=== PATIENT | male | born 1965 | race African-American/Black ===

== ENCOUNTER 2019-10-26 07:46 | Emergency (ER) | payer MEDICAID, SELFPAY ==
[2019-10-26 07:46] VITALS: BP 122/85; PULSE 93; RESP 16; TEMP 36.8; O2SAT 100; BMI 26.9
[2019-10-26 07:50] VITALS: BP 122/85; PULSE 93; RESP 16; TEMP 36.8; O2SAT 100
--- NOTE | 2019-10-26 08:09 | ED.VISSUMM ---
- ER Visit Summary Date of Service: 10/26/19 Chief Complaint: Left foot pain History of Present Illness: The patient is a 53 M presenting with left foot pain. Patient noted a blister between his fourth and fifth toes a few days ago. He states this has been progressively worsening. He made an appointment with podiatry but states they had to reschedule his appointment for later this month. He denies fever or other complaints. Physical Examination: Vitals are stable. Patient is afebrile. Alert no acute distress. HEENT exam is unremarkable. Neck is supple. Lungs are clear and equal bilaterally. Heart is regular rate and rhythm. Extremities abscess between fourth and fifth toes with surrounding erythema dorsum foot. Skin is warm and dry. No focal neurologic deficit. Remainder of exam is unremarkable. Emergency Department Course and Treatment: Left foot x-ray shows normal x-ray examination of the foot. CBC, chemistries unremarkable. Sed rate is 8. I&D was performed. Anesthetized with lidocaine. Incised with 11 blade. Moderate amount of pus was drained. Irrigated with saline. Patient was given Bactrim and Keflex. Advised to follow-up with primary care physician or podiatry. Advised to return to ED if worsening complaints. Disposition: Discharge home Impression: Left foot pain, abscess, I&D This note was generated with [employer] dictation software. It may contain incorrect words, spelling, and punctuation that were not noted in review of the chart prior to signing ED Disposition - Plan for ED Patient: Instructions: ED Abscess Incision And Drainage Prescriptions: Smz/Tmp Ds [Bactrim Ds] 1 tab PO BID #14 tab Prescription Printed Cephalexin [Keflex] 500 mg PO Q6 #40 cap Prescription Printed Hydrocodone Bitart/Apap 5-325 [[place] 5MG-325MG] 1 tab PO Q6H PRN PRN 2 Days #6 tab PRN Reason: Pain Prescription Printed Referrals: Care Physician,No Primary [Primary Care Provider] -
[2019-10-26 08:33] LABS: Erythrocyte Sedimentation Rate 8 mm/hr (0-20)
--- NOTE | 2019-10-26 08:33 | RAD_ITS ---
STUDY: X-RAY - LEFT FOOT CLINICAL: Male, 53 years old. PAINFUL BLISTER BETWEEN 4TH AND 5TH TOES FOR THE PAST WEEK. TECHNIQUE: 3 view(s) of the foot. COMPARISON: None. FINDINGS: Normal talus, calcaneus, and tarsal bones. Small plantar calcaneal enthesophyte. Normal visualized subtalar, talonavicular, calcaneocuboid, tarsal and tarsometatarsal articulations. Normal metatarsi. Normal metatarsophalangeal joint of the great toe. Normal tibial and fibular sesamoid bones. Normal interphalangeal joint of the great toe. Normal phalanges of the great toe. Normal second through fifth metatarsophalangeal joints. Normal interphalangeal joints and phalanges of the lesser toes. The soft tissue structures are unremarkable. RAD/Foot min 3 Views IMPRESSION: Normal x-ray examination of the foot. Electronically Signed: Leroy Patel MD at 8:45 EDT Tel , Service support ,
[2019-10-26 08:34] LABS: Absolute Lymphocyte Count 2.08 X10^3/uL (0.83-4.51); Absolute Neutrophil Count 7.1 X10^3/uL (2.0-7.7); Basophil# 0.07 X10^3/uL; Basophil% 0.7 % (0-1); Eosinophil# 0.47 X10^3/uL; Eosinophils% 4.5 % (0-5); Hematocrit 43.6 % (40-54); Hemoglobin 14.5 g/dL (13.0-16.5); Lymphocyte # 2.08 X10^3/ul (4.0); Lymphocyte % 19.9 % (19-41); Mean Corp Hgb Conc 33.3 g/dL (32-36); Mean Corpuscular Hgb 30.3 pg (27.0-32.0); Mean Platelet Vol. 10.4 fl (6.2-12.0); Monocyte# 0.74 X10^3/uL; Monocyte% 7.1 % (0-10); NRBC Flagged by Analyzer 0 % (0-5); Neutrophil # 7.07 X10^3/uL (2.7-7.7); Neutrophil % 67.5 % (47-70); POSITIVE MORPHOLOGY YES; Platelet Count 369 K/mm3 (150-450); RBC Distribution Width CV 13.9 % (11.6-14.6); RBC Distribution Width SD 46.7 fl (35.1-43.9); Red Blood Count 4.79 M/mm3 (4.6-6.2); White Blood Count 10.5 K/mm3 (4.4-11.0)
[2019-10-26 08:36] LABS: Differential Indicated SCAN CRITERIA MET
[2019-10-26 08:41] LABS: Anion Gap 4 (5-15); BUN 9 mg/dL (7-18); Calcium,Total 9.2 mg/dL (8.5-10.1); Chloride 102 mmol/L (98-107); Creatinine, Serum 1.28 mg/dL (0.70-1.30); EST Glomerular Filtration Rate 62 mL/min (>60); Est Glom Filt Rate - Afr Amer 75 mL/min (>60); Estimated Creatinine Clearance 60.96 ml/min; Glucose 87 mg/dL (74-106); Potassium 3.4 mmol/L (3.5-5.1); Sodium Level 137 mmol/L (136-145)
--- NOTE | 2019-10-26 09:02 | DCINST.ED_ITS ---
ED Disposition - Plan for ED Patient: Instructions: ED Abscess Incision And Drainage Prescriptions: Smz/Tmp Ds [Bactrim Ds] 1 tablet PO BID #14 tablet Cephalexin [Keflex] 500 mg PO Q6 #40 capsule Hydrocodone Bitart/Apap 5-325 [[place] 5MG-325MG] 1 tablet PO Q6H PRN PRN 2 Days #6 tablet PRN Reason: Pain Referrals: Care Physician,No Primary [Primary Care Provider] -
[2019-10-26] MEDS: HYDROcodone Bitartrate/Apap 5/325 Tablet PO (09:11)
[2019-10-26] MEDS: Smz/Tmp Ds Tablet 1 TABLET PO (09:11)
[2019-10-26] MEDS: Cephalexin 250 MG Capsule 500 MG PO (09:11)
[2019-10-26 09:26] VITALS: PULSE 87; RESP 17; O2SAT 99
== END 2019-10-26 09:27 | disposition home or self-care (01) ==
PROVIDERS: Emergency Provider Emergency Medicine
DX: L02.612 Cutaneous abscess of left foot (principal); Z72.0 Tobacco use
CPT/HCPCS: 10060; 73630; 80048; 85025; 85652; 99285; A4216

== ENCOUNTER 2020-05-14 18:40 | Emergency (ER) | payer MEDICAID, SELFPAY ==
[2020-05-14 18:41] VITALS: BP 121/83; PULSE 109; RESP 16; TEMP 36.8; O2SAT 98; BMI 27.5
[2020-05-14] MEDS: oxyCODONE 5 MG Tablet PO (19:14)
--- NOTE | 2020-05-14 19:20 | RAD_ITS ---
HISTORY: pain and swelling in left foot ADDITIONAL HISTORY: None provided. EXAMINATION/TECHNIQUE: XR Foot Min 3 Views Left Number of images including paperwork: 3 COMPARISON: None FINDINGS: BONES: No acute fracture. Calcaneal enthesophytes. JOINTS: No subluxation. Erosive changes noted involving the IP joint of the great toe and at least see DIP joint of the second toe, the third and fourth toes limited in evaluation due to flexion and overlapping. SOFT TISSUES: No distinct foreign body. RAD/Foot min 3 Views IMPRESSION: No acute fracture. Erosive changes of the great toe IP joint and second toe DIP joint suggesting inflammatory arthropathy. Correlate with clinical findings. at 2008 Reported and signed by: Jenise Ashby MD Electronically Signed: Jenise Ashby MD at 20:08 EDT Tel , Service support ,
--- NOTE | 2020-05-14 19:33 | ED.DCSUM_ITS ---
History of Present Illness Chief Complaint: Lower Extremity Injury Informant: Patient Onset: Days Context: Gradual Onset Current Severity: Moderate Maximum Severity: Severe Narrative: Patient presents with left foot pain for the past 3 days or so. He points to the metatarsal joints across all toes and describing his area of pain. He denies any recent injury. He states it feels similar to the last time he was in the emergency room. On review of that note from October 2019 patient had a small abscess that required I&D. Past Medical History - Allergies and Home Meds Allergies/Adverse Reactions: Allergies naproxen [From Naprosyn] Adverse Reaction (Verified 05/14/20 18:41) Nausea Primary Care Physician: Care Physician,No Primary [Primary Care Provider] - Past Medical History: None Smoking Status: Current every day smoker Review of Systems General: Denies: Chills, Fever Eyes: Denies: Visual changes - bilaterally ENT: Denies: Bilateral ear pain Cardiovascular: Denies: Chest pain Respiratory: Denies: Dyspnea, Cough Gastrointestinal: Denies: Abdominal pain, Vomiting, Diarrhea Genitourinary: Denies: Dysuria Musculoskeletal: Reports: Extremity Pain Skin: Denies: Rash Neurological: Denies: Headache Hematologic: Denies: Easy bruising, Easy bleeding Allergy: Denies: Uticaria Physical Exam Vital Signs/Narrative: Vital Signs Temp Pulse Resp BP Pulse Ox 05/14/20 18:41 98.2 F 109 H 16 121/83 H 98 Inital Vital Signs reviewed: Yes General: Well nourished, Well developed Head: Normocephalic ENT: Moist mucous membranes Neck: Supple Cardiovascular: Regular rate, Regular rhythm Respiratory: No distress, CTA bilaterally Abdomen: Soft, Nontender Extremities: - - Diffuse tenderness at the MTP joints 1 through 5 on the left foot. No significant edema. No erythema or excessive warmth. No open wounds or abscesses appreciated. Skin: Normal color Neurological: Alert, Oriented x3 Psychological: Normal affect Diagnostic/Tx/Re-eval - Medical Decision Making 3 view left foot x-rays are obtained and reveal no acute findings per my interpretation. Patient was given a dose of oxycodone here for pain. He will be treated with a short burst of steroids along with analgesics for pain control. He is referred to podiatry for follow-up. ED Disposition - Plan for ED Patient: Disposition: Home or Assisted Living Diagnosis: Left foot pain Instructions: ED Foot Sprain Prescriptions: Prednisone [Deltasone] 40 mg PO DAILY #10 tablet Transmission Status: Pending to [id number] Hydrocodone Bitart/Apap 5-325 [[place] 5MG-325MG] 1 tablet PO Q4H PRN PRN 2 Days #10 tablet PRN Reason: Pain Transmission Status: Sent to [id number] Referrals: Callie Ngo DPM [STAFF PHYSICIAN] - 3-5 Days if not improving
[2020-05-14 19:47] VITALS: RESP 16
== END 2020-05-14 19:47 | disposition home or self-care (01) ==
PROVIDERS: Emergency Provider Emergency Medicine
DX: M79.672 Pain in left foot (principal); F17.200 Nicotine dependence, unspecified, uncomplicated
CPT/HCPCS: 73630; 99283

== ENCOUNTER 2020-05-31 15:30 | Emergency (ER) | payer MEDICAID, SELFPAY ==
[2020-05-31 15:31] VITALS: BP 114/92; PULSE 86; RESP 16; TEMP 36.1; O2SAT 100; BMI 26.7
--- NOTE | 2020-05-31 15:55 | ED.VIS.GEN ---
History of Present Illness Chief Complaint: Lower Extremity Injury Informant: Patient Onset: Month(s) Context: Sudden Onset Timing: Continuous Quality: Pain and swelling Location: Dorsal distal left foot Current Severity: Mild Maximum Severity: Moderate Worsened by: Nothing specific Relieved by: Nothing Associated Symptoms: Increased pain since last visit Narrative: Patient is a 54-year-old male who denies history of peripheral arterial disease and denies symptoms of claudication who presents because of increased pain and swelling left foot. He reports swelling over the proximal phalanx of the second and third left toe. He has thickened toenails. There is no history of trauma. He denies history of arthritis. He states he did have x-ray over a month ago which was negative. At that time there was no soft tissue swelling. Prior similar symptoms: Yes Recent Illness/Hospitalization: Yes - Than 1 month ago Past Medical History - Allergies and Home Meds Allergies/Adverse Reactions: Allergies naproxen [From Naprosyn] Adverse Reaction (Verified 05/31/20 15:31) Nausea Primary Care Physician: Care Physician,No Primary [Primary Care Provider] - Prior records reviewed: Yes Lives: Spouse/ Significant Other Smoking Status: Current some day smoker Alcohol: Rare Drugs: None Review of Systems General: Denies: Chills, Fever, Sweats, Weight loss Gastrointestinal: Denies: Nausea, Vomiting Musculoskeletal: Reports: Swelling, Extremity Pain. Denies: Myalgias, Arthralgias Skin: Denies: Rash, Abscess, Abrasions, Wounds Neurological: Denies: Weakness, Parasthesia, Numbness Hematologic: Denies: Easy bruising, Easy bleeding Physical Exam Vital Signs/Narrative: Vital Signs Temp Pulse Resp BP Pulse Ox 05/31/20 15:31 97 F L 86 16 114/92 H 100 Inital Vital Signs reviewed: Yes General: Well nourished, Well developed, No Acute Distress Head: Normocephalic, Atraumatic Eyes: Perrl, EOMI Neck: Supple Cardiovascular: Regular rate, Regular rhythm Respiratory: No distress Rectal: Deferred Back: Nontender, Normal Inspection. Negative for: CVA tenderness Extremities: Tenderness, - - Swelling and pain to palpation over the proximal phalanx of the second and third left toe. DP and PT pulse are palpable.. Negative for: Edema Skin: Normal color, No rash, No Trauma. Negative for: Cyanosis, Diaphoresis, Jaundice Neurological: Alert, Oriented x3, Cranial nerves II-XII grossly intact, Normal Strength, Normal Sensation Psychological: Normal affect, Normal Mood Diagnostic/Tx/Re-eval Chest X-Ray - ED: Read by ED Physician, - - View x-ray of the foot reveals no evidence of fracture, subluxation or dislocation. There is no significant arthritic changes noted either. There is slight soft tissue swelling. 05/31/20 15:47 Foot min 3 Views [RAD] Stat - Medical Decision Making X-ray was obtained to determine if he did injure it even though reports nothing since he has swelling which was not noted on prior visit. ED Disposition - Plan for ED Patient: Disposition: Home or Assisted Living Diagnosis: Left foot pain Instructions: ED Pain, Acute, Uncertain Cause Prescriptions: Ibuprofen 800 mg PO Q8 #20 tablet Transmission Status: Pending to [facility]/pharmacy #[id number] Referrals: Care Physician,No Primary [Primary Care Provider] - Additional Instructions: Schedule appointment with At [facility]. The cause of your pain is unknown.
--- NOTE | 2020-05-31 15:57 | RAD_ITS ---
STUDY: X-RAY - LEFT FOOT CLINICAL: Male, 54 years old. Pain. TECHNIQUE: 3 view(s) of the foot. COMPARISON: May 14, 2020. FINDINGS: There is plantar spur of the calcaneus. Normal visualized subtalar, talonavicular, calcaneocuboid, tarsal and tarsometatarsal articulations. Normal metatarsi. Normal metatarsophalangeal joint of the great toe. Normal tibial and fibular sesamoid bones. Mild spurring at the interphalangeal joint of the great toe. Normal second through fifth metatarsophalangeal joints. There are stable erosive changes of the distal phalanges of the first and second toe and second middle phalanx . The soft tissue structures are unremarkable. RAD/Foot min 3 Views IMPRESSION: Stable erosive change of the first and second toes with inflammatory arthropathy versus osteomyelitis. Electronically Signed: Eder Long MD at 16:40 EDT , Service support ,
--- NOTE | 2020-05-31 16:39 | ED.RN ---
pt upset that MD ordered motrin- refused. states he has been taking motrin at home. did not want paperwork. aware of needing have followup appt at [place]. MD aware of pt being upset.
== END 2020-05-31 16:40 | disposition home or self-care (01) ==
PROVIDERS: Emergency Provider Emergency Medicine
DX: M79.672 Pain in left foot (principal); F17.200 Nicotine dependence, unspecified, uncomplicated
CPT/HCPCS: 73630; 99282

== ENCOUNTER 2020-12-04 10:48 | Emergency (ER) | payer MEDICAID, SELFPAY ==
[2020-12-04 10:50] VITALS: BP 127/91; PULSE 82; RESP 16; TEMP 36.8; O2SAT 100; BMI 24.3
--- NOTE | 2020-12-04 11:01 | ED.VIS.GI ---
HPI HPI - GI History of Present Illness Chief Complaint: Abd Pain Informant: patient Abdominal Pain/Flank Pain Onset: Weeks Narrative Narrative: Presents 1 week epigastric pain. Denies nausea or vomiting. Normal bowel movement yesterday. Nonbloody stools. No worsening or alleviating factors. Able to eat. States his symptoms 6 months ago self-limiting. Does have a PCP, states has not discussed with any body these new symptoms. No history endoscopies in the past. Denies any dami surgeries. No urinary symptoms. States pain is sharp in nature. Reports occasional alcohol, denies significant use. Prior similar symptoms: Yes PFSH PFSH Medical History no medical history Home Medications omeprazole 40 mg PO DAILY #30 cap 12/04/20 [Rx Last Taken Unknown] sucralfate [Carafate] 1 g PO BID #60 tab 12/04/20 [Rx Last Taken Unknown] Allergy/AdvReac Type Severity Reaction Status Date / Time naproxen [From Naprosyn] AdvReac Nausea Verified 12/04/20 10:49 Surgical History no surgical history Social History Smoking Status: Current some day smoker tobacco type: e-cigarettes ROS ROS ED Constitutional Constitutional ED: Denies chills, fever(s) or sweats Eyes Eyes: Denies change in vision ENT ENT ED: Denies dysphagia or sore throat Cardiovascular Cardiovascular: Denies chest pain, leg edema, palpitations or racing heartbeat Respiratory/Chest Respiratory/Chest: Denies cough, dyspnea or dyspnea on exertion Gastrointestinal Gastrointestinal: Reports abdominal pain; Denies diarrhea, nausea or vomiting Genitourinary Genitourinary ED: Denies dysuria, hematuria or urinary frequency Musculoskeletal Musculoskeletal: Denies back pain, extremity pain or neck pain Integumentary Denies rash or wounds Neurologic Neurologic: Denies headache(s), paresthesias or weakness EXAM Physical Exam Const Vital Signs: 12/04/20 10:50 Temperature 98.2 F Temperature Source Oral Pulse Rate 82 Respiratory Rate 16 Blood Pressure 127/91 H Blood Pressure Mean 103 Pulse Ox 100 Oxygen Delivery Method Room Air Positive well nourished and well developed General Appearance ED: well developed and NAD HEENT Reports moist mucous membranes normocephalic and atraumatic Eyes PERRL, EOMs intact bilaterally and conjunctivae normal General Eye ED: Yes normal appearance of both eyes Neck no lymphadenopathy and supple General: Negative for tenderness Chest Wall Chest: Negative for tenderness Resp normal respiratory effort and normal air movement Effort and Inspection: symmetric chest movement; Negative for respiratory distress Cardio regular rate, regular rhythm and no murmurs Peripheral Pulses: pulses 2+ throughout GI normal to inspection, nondistended, normoactive bowel sounds GI Narrative: Epigastric tenderness no guarding or rebound. Negative Franklin's or McBurney's tenderness. Palpation: Negative for guarding or rebound tenderness present Back/Spine no CVA tenderness and no thoracic nor lumbar tenderness Extremity normal to inspection General Extremety ED: Negative for edema or tenderness General Extremity: Negative for edema Neuro oriented x3 and no sensory deficits noted Sensorium / Orientation: awake and alert Skin no rashes or lesions noted and no wounds MDM MDM MDM Narrative Medical decision making narrative: Patient nonsurgical abdomen. Epigastric tenderness on exam. Abdominal labs obtained all normal. Treated with GI cocktail with improvement of symptoms. He does not use NSAIDs listed with allergy to naproxen. Discussed using Tylenol as needed. He is placed on omeprazole and Carafate. He will monitor for GI bleeds. He is given follow-up with GI as an outpatient. All questions were answered. Lab Data Attestation: I reviewed the patient's lab results. Labs: Laboratory Results - last 24 hr 12/04/20 12/04/20 10:40 10:40 WBC 6.8 RBC 4.77 Hgb 14.4 Hct 42.3 MCV 88.7 MCH 30.2 MCHC 34.0 RDW Std Deviation 44.6 H RDW Coeff of Meagan 13.7 Plt Count 352 MPV 10.7 Immature Gran % (Auto) 0.300 Neut % (Auto) 60.5 Lymph % (Auto) 29.2 Andrews % (Auto) 7.8 Eos % (Auto) 1.3 Baso % (Auto) 0.9 Absolute Neuts (auto) 4.1 Absolute Lymphs (auto) 1.98 Nucleated RBC % 0 Sodium 139 Potassium 3.5 Chloride 103 Carbon Dioxide 31.0 Anion Gap 5 BUN 9 Creatinine 1.09 Estim Creat Clear Calc 77.20 Est GFR (MDRD) Af Amer 90 Est GFR (MDRD) Non-Af 74 BUN/Creatinine Ratio 8.3 L Glucose 124 H Calcium 9.0 Total Bilirubin 0.40 Direct Bilirubin 0.12 AST 18 ALT 22 Alkaline Phosphatase 62 Total Protein 7.4 Albumin 3.4 Globulin 4.0 Lipase 120 Discharge Plan Triage Chief Complaint: Abd Pain ED Provider: Timo Crews Dx/Rx/DC Orders Clinical Impression: Acute gastritis, Abdominal pain, epigastric Instructions: ED Gastritis (Adult) Prescriptions: New sucralfate [Carafate] 1 gram tablet 1 g PO BID Qty: 60 RF: 0 omeprazole 40 mg capsule,delayed release(DR/EC) 40 mg PO DAILY Qty: 30 RF: 0 Primary Care Provider: Care Physician,No Primary Referrals: Abdiaziz Torres DO [STAFF PHYSICIAN] - 1 Week Care Physician,No Primary [Primary Care Provider] - Disposition Disposition: Home, Self Care
[2020-12-04] MEDS: Mag Hydrox/Al Hydrox/Simeth 30 ML UDC PO (11:07)
[2020-12-04 11:12] LABS: Absolute Lymphocyte Count 1.98 X10^3/uL (0.83-4.51); Absolute Neutrophil Count 4.1 X10^3/uL (2.0-7.7); Basophil# 0.06 X10^3/uL; Basophil% 0.9 % (0-1); Eosinophil# 0.09 X10^3/uL; Eosinophils% 1.3 % (0-5); Hematocrit 42.3 % (40-54); Hemoglobin 14.4 g/dL (13.0-16.5); Lymphocyte # 1.98 X10^3/ul (0.83-4.51); Lymphocyte % 29.2 % (19-41); Mean Corpuscular Hgb 30.2 pg (27.0-32.0); Mean Corpuscular Volume 88.7 fL (80-94); Mean Platelet Vol. 10.7 fl (6.2-12.0); Monocyte# 0.53 X10^3/uL; Monocyte% 7.8 % (0-10); NRBC Flagged by Analyzer 0 % (0-5); Neutrophil # 4.11 X10^3/uL (2.7-7.7); Neutrophil % 60.5 % (47-70); Platelet Count 352 K/mm3 (150-450); RBC Distribution Width CV 13.7 % (11.6-14.6); RBC Distribution Width SD 44.6 fl (35.1-43.9); Red Blood Count 4.77 M/mm3 (4.6-6.2); White Blood Count 6.8 K/mm3 (4.4-11.0)
[2020-12-04 11:25] LABS: AST(SGOT) 18 U/L (15-37); Alanine Aminotransfer ALT/SGPT 22 U/L (16-61); Albumin, Serum 3.4 g/dL (3.2-5.0); Alkaline Phosphatase 62 U/L (45-117); Anion Gap 5 (5-15); BUN 9 mg/dL (7-18); BUN/Creat Ratio 8.3 RATIO (10-20); Bilirubin, Direct 0.12 mg/dL (0.00-0.30); Chloride 103 mmol/L (98-107); Creatinine, Serum 1.09 mg/dL (0.70-1.30); EST Glomerular Filtration Rate 74 mL/min (>60); Est Glom Filt Rate - Afr Amer 90 mL/min (>60); Glucose 124 mg/dL (74-106); Lipase 120 U/L (73-393); Potassium 3.5 mmol/L (3.5-5.1); Protein, Total 7.4 g/dL (6.4-8.2); Sodium Level 139 mmol/L (136-145)
[2020-12-04 12:20] VITALS: BP 140/89; PULSE 71; RESP 16; O2SAT 100
== END 2020-12-04 12:21 | disposition home or self-care (01) ==
PROVIDERS: Emergency Provider Emergency Medicine
DX: K29.00 Acute gastritis without bleeding (principal); F17.290 Nicotine dependence, other tobacco product, uncomplicated
CPT/HCPCS: 80048; 80076; 83690; 85025; 99285

== ENCOUNTER 2021-05-26 05:13 | Emergency (ER) | payer MEDICAID, SELFPAY ==
[2021-05-26 05:15] VITALS: BP 127/82; PULSE 74; RESP 18; TEMP 36.7; O2SAT 100; BMI 27.1
--- NOTE | 2021-05-26 05:24 | EKG12_ITS ---
Test Reason : ABD PAIN Blood Pressure : / mmHG Vent. Rate : 069 BPM Atrial Rate : 069 BPM P-R Int : 148 ms QRS Dur : 090 ms QT Int : 418 ms P-R-T Axes : 056 010 022 degrees QTc Int : 447 ms Normal sinus rhythm Normal ECG Confirmed by MATTIE IRELAND, MONISHA ([id number]), photograph editor ROXANNE DE SOUZA ([id number]) on 05/31/2021 11:10:00 AM Referred By: Confirmed By:MONISHA PHELPS MD
--- NOTE | 2021-05-26 05:26 | ED.VIS.GI ---
HPI <Dr. Augustin Garay MD - Last Filed: 05/26/21 06:31> HPI - GI History of Present Illness Chief Complaint: Abd Pain Informant: patient Narrative Narrative: Patient presents with epigastric pain that have been going off and on for at least a week and a half. He has had this before but does not know what caused it. He is no longer taking pantoprazole or any antacid. He is no longer taking Carafate. He states he has had an endoscopy but it was a long time ago and he is not sure when. He cannot think of anything that caused this. Nothing makes it better or worse. He is eating and drinking normally. He has no nausea vomiting. No change in bowel habits. No melena. No urinary symptoms. No fevers. No chest pain. He drinks alcohol sometimes but has not been increasing with this. He does not take nonsteroidals. All the pain is in the epigastric area. It does not radiate to his chest back or any other area. [facility] <Dr. Augustin Garay MD - Last Filed: 05/26/21 06:31> [facility] Medical History Cancer Home Medications NK 05/26/21 [History Last Taken Unknown] omeprazole 20 mg PO DAILY #30 cap 05/26/21 [Rx Last Taken Unknown] sucralfate [Carafate] 1 g PO BID #20 tab 05/26/21 [Rx Last Taken Unknown] Allergy/AdvReac Type Severity Reaction Status Date / Time naproxen [From Naprosyn] AdvReac Nausea Verified 05/26/21 05:19 Social History Smoking Status: Current some day smoker tobacco type: e-cigarettes ROS <Dr. Augustin Garay MD - Last Filed: 05/26/21 06:31> ROS ED Constitutional Constitutional ED: Denies fever(s) ENT ENT ED: Reports other Details: No acid or sour taste in his throat. ; Denies sore throat Cardiovascular Cardiovascular: Denies chest pain or palpitations Respiratory/Chest Respiratory/Chest: Denies cough Gastrointestinal Gastrointestinal: Reports abdominal pain; Denies constipation, diarrhea, melena, nausea or vomiting Genitourinary Genitourinary ED: Denies dysuria Musculoskeletal Musculoskeletal: Denies back pain Integumentary Denies rash Neurologic Neurologic: Denies headache(s) Psychiatric Psychiatric: Denies anxiety or depression Endocrine Endocrinology: Denies polydipsia or polyuria Hematologic/Lymphatic Hematologic/Lymphatic: Denies easy bleeding or easy bruising Allergic/Immunologic Allergic/Immunologic ED: Denies urticaria EXAM <Dr. Augustin Garay MD - Last Filed: 05/26/21 06:31> Physical Exam Const Vital Signs: 05/26/21 05:15 Temperature 98.0 F Temperature Source Temporal Pulse Rate 74 Respiratory Rate 18 Blood Pressure 127/82 H Blood Pressure Mean 97 Pulse Ox 100 Oxygen Delivery Method Room Air Positive well nourished and well developed General Appearance ED: well developed and NAD HEENT Reports moist mucous membranes Eyes General Eye ED: Negative for pale conjunctiva or scleral icterus Neck no JVD Resp normal respiratory effort and clear to auscultation bilaterally Auscultation: Negative for rales, rhonchi or wheezes Cardio regular rate and regular rhythm GI non-distended and no masses GI Narrative: Abdomen is flat, nondistended, has normal bowel sounds. There is some epigastric tenderness but no right upper quadrant tenderness. No tenderness at all in lower abdomen. No rebound or guarding anywhere. I do not feel hernia. Auscultation: normoactive bowel sounds Palpation: soft Back/Spine no CVA tenderness Extremity General Extremety ED: Negative for edema or tenderness General Extremity: Negative for edema Neuro Sensorium / Orientation: alert Psych mental status grossly normal Skin Rashes: no rashes <Dr. Timo Crews DO - Last Filed: 05/26/21 07:23> Physical Exam Const Vital Signs: 05/26/21 05:15 Temperature 98.0 F Temperature Source Temporal Pulse Rate 74 Respiratory Rate 18 Blood Pressure 127/82 H Blood Pressure Mean 97 Pulse Ox 100 Oxygen Delivery Method Room Air MDM <Dr. Augustin Garay MD - Last Filed: 05/26/21 06:31> [facility] Narrative Medical decision making narrative: Patient's labs show normal CBC. Electrolytes and liver function test are essentially normal. Glucose is minimally elevated. Ethanol is negative. I went back to check the patient. He was asleep. He was aroused with gentle shake of the shoulder. He states he is still having pain and is no better no different. He has some mild epigastric tenderness. It is hard to get from him details of what makes this better or worse or its history. It sounds like he has had it off and on for a while. With him having continuing pain I will do CT to make sure we do not see any acute process perforation etc. I think if this is okay he can go home on proton pump inhibitor and Carafate which seemed to have helped him last time he used it. Lab Data Attestation: I reviewed the patient's lab results. Labs: Laboratory Results - last 24 hr 05/26/21 05/26/21 05/26/21 05:23 05:23 05:35 WBC 6.4 RBC 4.76 Hgb 13.9 Hct 41.2 MCV 86.6 MCH 29.2 MCHC 33.7 RDW Std Deviation 41.5 RDW Coeff of Meagan 13.2 Plt Count 366 MPV 10.6 Immature Gran % (Auto) 0.200 Neut % (Auto) 56.9 Lymph % (Auto) 29.0 [place] % (Auto) 9.8 Eos % (Auto) 3.0 Baso % (Auto) 1.1 H Absolute Neuts (auto) 3.7 Absolute Lymphs (auto) 1.86 Nucleated RBC % 0 Sodium 138 Potassium 3.7 Chloride 103 Carbon Dioxide 32.0 Anion Gap 3 L BUN 12 Creatinine 1.19 Estim Creat Clear Calc 64.03 Est GFR (MDRD) Af Amer 81 Est GFR (MDRD) Non-Af 67 BUN/Creatinine Ratio 10.1 Glucose 108 H Calcium 8.6 Total Bilirubin 0.40 AST 30 ALT 31 Alkaline Phosphatase 54 Total Protein 7.2 Albumin 3.5 Globulin 3.7 Albumin/Globulin Ratio 0.9 Lipase 107 Ethyl Alcohol < 3.0 Radiography Diagnostic Testing: Clinical Impression(s) from Imaging Studies Abdomen/Pelvis CT 05/26/21 06:25 IMPRESSION: 1. No bowel dilatation or bowel wall thickening. 2. Normal appendix. 3. Mild urinary bladder wall thickening, may be due to decompression or cystitis. 4. Hypoattenuating hepatic lesions, too small to characterize, likely represent cysts or hemangiomas however can be further characterize nonemergent MR abdomen with contrast. Electronically Signed: Jose Springer MD at 7:03 EDT , EKG Initial EKG: Comments: EKG shows normal sinus rhythm with a rate of 69. EKG done for upper abdominal pain in a 55-year-old male. There is no ectopy. No acute ST elevation or depression. AR interval, QRS duration and QTc normal. <Dr. Timo Crews, DO - Last Filed: 05/26/21 07:23> [facility] Narrative Medical decision making narrative: Le: Patient signed out to me to follow-up on CT scan. Results shows no perforations. Incidental cyst versus hemangioma of the liver. Thickening versus decompressed bladder. Patient denies urinary symptoms. Nontender suprapubic. Normal appendix noted on CT. I discussed findings with the patient. He is given follow-up as an outpatient. Prescriptions for treatment of gastritis. He denies any bloody stools. Work note given. Follow-up instructions. All questions were answered. Lab Data Attestation: I reviewed the patient's lab results. Labs: Laboratory Results - last 24 hr 05/26/21 05/26/21 05/26/21 05:23 05:23 05:35 WBC 6.4 RBC 4.76 Hgb 13.9 Hct 41.2 MCV 86.6 MCH 29.2 MCHC 33.7 RDW Std Deviation 41.5 RDW Coeff of Meagan 13.2 Plt Count 366 MPV 10.6 Immature Gran % (Auto) 0.200 Neut % (Auto) 56.9 Lymph % (Auto) 29.0 [place] % (Auto) 9.8 Eos % (Auto) 3.0 Baso % (Auto) 1.1 H Absolute Neuts (auto) 3.7 Absolute Lymphs (auto) 1.86 Nucleated RBC % 0 Sodium 138 Potassium 3.7 Chloride 103 Carbon Dioxide 32.0 Anion Gap 3 L BUN 12 Creatinine 1.19 Estim Creat Clear Calc 64.03 Est GFR (MDRD) Af Amer 81 Est GFR (MDRD) Non-Af 67 BUN/Creatinine Ratio 10.1 Glucose 108 H Calcium 8.6 Total Bilirubin 0.40 AST 30 ALT 31 Alkaline Phosphatase 54 Total Protein 7.2 Albumin 3.5 Globulin 3.7 Albumin/Globulin Ratio 0.9 Lipase 107 Ethyl Alcohol < 3.0 Radiography Diagnostic Testing: Clinical Impression(s) from Imaging Studies Abdomen/Pelvis CT 05/26/21 06:25 IMPRESSION: 1. No bowel dilatation or bowel wall thickening. 2. Normal appendix. 3. Mild urinary bladder wall thickening, may be due to decompression or cystitis. 4. Hypoattenuating hepatic lesions, too small to characterize, likely represent cysts or hemangiomas however can be further characterize nonemergent MR abdomen with contrast. Electronically Signed: Jose Springer MD at 7:03 EDT , Discharge Plan Triage Chief Complaint: Abd Pain ED Provider: Augustin Garay Dx/Rx/DC Orders Clinical Impression: Acute epigastric pain Instructions: ED Epigastric Pain Uncertain Cause Prescriptions: New omeprazole [omeprazole] 20 MG capsule 20 mg PO DAILY Qty: 30 RF: 0 sucralfate [Carafate] 1 gram tablet 1 g PO BID Qty: 20 RF: 0 No Action NK RF: 0 Primary Care Provider: Care Physician,No Primary Referrals: Bob Maya MD [STAFF PHYSICIAN] - 3-5 Days Care Physician,No Primary [Primary Care Provider] - Disposition Disposition: Home, Self Care
[2021-05-26 05:33] LABS: Absolute Lymphocyte Count 1.86 X10^3/uL (0.83-4.51); Absolute Neutrophil Count 3.7 X10^3/uL (2.0-7.7); Basophil# 0.07 X10^3/uL; Basophil% 1.1 % (0-1); Eosinophil# 0.19 X10^3/uL; Hematocrit 41.2 % (40-54); Hemoglobin 13.9 g/dL (13.0-16.5); Lymphocyte # 1.86 X10^3/ul (0.83-4.51); Mean Corp Hgb Conc 33.7 g/dL (32-36); Mean Corpuscular Hgb 29.2 pg (27.0-32.0); Mean Corpuscular Volume 86.6 fL (80-94); Mean Platelet Vol. 10.6 fl (6.2-12.0); Monocyte# 0.63 X10^3/uL; Monocyte% 9.8 % (0-10); NRBC Flagged by Analyzer 0 % (0-5); Neutrophil # 3.65 X10^3/uL (2.7-7.7); Neutrophil % 56.9 % (47-70); Platelet Count 366 K/mm3 (150-450); RBC Distribution Width CV 13.2 % (11.6-14.6); RBC Distribution Width SD 41.5 fl (35.1-43.9); Red Blood Count 4.76 M/mm3 (4.6-6.2); White Blood Count 6.4 K/mm3 (4.4-11.0)
[2021-05-26] MEDS: Mag Hydrox/Al Hydrox/Simeth 30 ML UDC PO (05:37)
[2021-05-26 05:51] LABS: ALB/GLOB Ratio 0.9 RATIO (0.9-2.4); AST(SGOT) 30 U/L (15-37); Alanine Aminotransfer ALT/SGPT 31 U/L (16-61); Albumin, Serum 3.5 g/dL (3.2-5.0); Alkaline Phosphatase 54 U/L (45-117); Anion Gap 3 (5-15); BUN 12 mg/dL (7-18); BUN/Creat Ratio 10.1 RATIO (10-20); Calcium,Total 8.6 mg/dL (8.5-10.1); Chloride 103 mmol/L (98-107); Creatinine, Serum 1.19 mg/dL (0.70-1.30); EST Glomerular Filtration Rate 67 mL/min (>60); Est Glom Filt Rate - Afr Amer 81 mL/min (>60); Estimated Creatinine Clearance 64.03 ml/min; Globulin 3.7 g/dL (2.2-4.2); Glucose 108 mg/dL (74-106); Lipase 107 U/L (73-393); Potassium 3.7 mmol/L (3.5-5.1); Protein, Total 7.2 g/dL (6.4-8.2); Sodium Level 138 mmol/L (136-145)
[2021-05-26 06:03] LABS: Alcohol, Blood (Medical)-Serum < 3.0 mg/dL
--- NOTE | 2021-05-26 06:25 | CT_ITS ---
STUDY: CT ABDOMEN AND PELVIS WITH CONTRAST REASON FOR EXAM: Male, 55 years old. abd pain RADIATION DOSAGE (If Supplied By Facility): CTDIvol = ( 12.03 ) mGy, DLP = ( 565.76 ) mGycm TECHNIQUE: Transaxial images were obtained from the dome of the diaphragm to the symphysis pubis without oral contrast. IV 100mL Isovue-300 was administered. Sagittal and coronal images were reconstructed. Individualized dose optimization techniques were used for this CT. COMPARISON: None. LIMITATIONS: None. LOWER CHEST: Normal. LIVER: Hypoattenuating lesions in the liver, too small to characterize. GALLBLADDER/BILE DUCTS: Normal. PANCREAS: Normal. SPLEEN: Normal. ADRENAL GLANDS: Normal. KIDNEYS/URETERS/BLADDER: No hydroureteronephrosis or radiopaque nephrolithiasis. Mild urinary bladder wall thickening. RETROPERITONEUM/AORTA: Normal. BOWEL/MESENTERY: Normal. APPENDIX: Identified and normal. PERITONEUM: Normal. REPRODUCTIVE ORGANS: Normal. BONES/SOFT TISSUES: No acute abnormality. OTHER: None. CT/Abdomen/Pelvis W IV Cont ONLY IMPRESSION: 1. No bowel dilatation or bowel wall thickening. 2. Normal appendix. 3. Mild urinary bladder wall thickening, may be due to decompression or cystitis. 4. Hypoattenuating hepatic lesions, too small to characterize, likely represent cysts or hemangiomas however can be further characterize nonemergent MR abdomen with contrast. Electronically Signed: Jose Springer MD at 7:03 EDT ,
[2021-05-26 07:37] VITALS: BP 128/77; PULSE 84; RESP 16; O2SAT 98
== END 2021-05-26 07:38 | disposition home or self-care (01) ==
PROVIDERS: Emergency Provider Emergency Medicine; Visit Provider Emergency Medicine
DX: R10.13 Epigastric pain (principal); F17.290 Nicotine dependence, other tobacco product, uncomplicated
CPT/HCPCS: 74177; 80053; 82077; 83690; 85025; 93005; 96365; 99284; Q9967; A4216; J3490

== ENCOUNTER 2021-10-29 16:34 | Emergency (ER) | payer MEDICAID, SELFPAY ==
[2021-10-29 16:35] VITALS: BP 145/78; PULSE 78; RESP 16; TEMP 36.6; O2SAT 99; BMI 27.3
--- NOTE | 2021-10-29 17:52 | CT_ITS ---
STUDY: CT ABDOMEN AND PELVIS WITH CONTRAST REASON FOR EXAM: Male, 55 years old. abdominal pain RADIATION DOSAGE (If Supplied By Facility): CTDIvol = ( 13.56 ) mGy, DLP = ( 683.44 ) mGycm TECHNIQUE: Transaxial images were obtained from the dome of the diaphragm to the symphysis pubis without oral contrast. IV 100mL Isovue-370 was administered. Sagittal and coronal images were reconstructed. Individualized dose optimization techniques were used for this CT. COMPARISON: 05/26/2021 FINDINGS: The visualized lung bases are unremarkable. The visualized portions of the heart are within normal limits. Multiple subcentimeter hepatic cysts. Normal gallbladder and extrahepatic biliary system. Normal spleen. Normal pancreas. Normal bilateral adrenal glands. Normal right kidney. Normal left kidney. Normal visualized stomach. Normal small intestine. Normal colon. The appendix is visualized and appears normal. Normal abdominal aorta. Normal inferior vena cava. Normal retroperitoneum. Normal urinary bladder. Normal abdominal wall. Mild levoscoliosis lumbar spine with degenerative disc disease. CT/Abdomen/Pelvis W IV Cont ONLY IMPRESSION: Normal enhanced CT of the abdomen and pelvis. Electronically Signed: Leroy Patel MD at 19:40 EDT ,
--- NOTE | 2021-10-29 17:53 | ED.VIS.GI ---
HPI HPI - GI History of Present Illness Chief Complaint: Abd Pain Detail of Chief Complaint: Abdominal pain for 3 days Informant: patient Narrative Narrative: Patient presents the emergency department complaint of abdominal pain for the last 3 days. Patient states the pains been somewhat intermittent and is a 10 out of 10. He states that somewhat diffuse. He had nausea and vomiting x2 yesterday. He denies any blood in his stool. He denies diarrhea. He denies black tarry stool. He denies fever. He is never had pain like this before. Patient denies urinary symptoms. He denies chest pain or shortness of breath. Prior similar symptoms: No PFSH PFSH Medical History Cancer Home Medications omeprazole 20 mg capsule,delayed release 20 mg PO DAILY #30 caps 05/26/21 [Rx Last Taken Unknown] sucralfate 1 gram tablet (Carafate) 1 g PO BID #20 tabs 05/26/21 [Rx Last Taken Unknown] hydrocodone-acetaminophen 5-325mg 5mg-325mg 1 tab PO Q4H PRN PRN Pain 2 days #10 TABLETS 10/29/21 [Rx Last Taken Unknown] lansoprazole 30 mg capsule,delayed release (Prevacid) 30 mg PO DAILY #14 caps 10/29/21 [Rx Last Taken Unknown] Allergy/AdvReac Type Severity Reaction Status Date / Time naproxen [From Naprosyn] AdvReac Nausea Verified 10/29/21 16:35 Social History Smoking Status: Current some day smoker tobacco type: e-cigarettes ROS ROS ED Review of Systems ROS Unobtainable: other Constitutional Constitutional ED: Reports lethargy; Denies chills, fever(s), sweats or weight loss Eyes Eyes: Denies blurry vision, change in vision or diplopia ENT ENT ED: Denies rhinorrhea or sore throat Cardiovascular Cardiovascular: Denies chest pain, orthopnea or racing heartbeat Respiratory/Chest Respiratory/Chest: Denies cough, dyspnea, dyspnea on exertion, orthopnea or sputum Gastrointestinal Gastrointestinal: Reports abdominal pain, nausea and vomiting; Denies diarrhea Genitourinary Genitourinary ED: Denies dysuria, hematuria or urinary frequency Musculoskeletal Musculoskeletal: Denies arthralgias, back pain, myalgias or neck pain Integumentary Denies abscess, Abrasions or rash Neurologic Neurologic: Denies headache(s) or weakness Psychiatric Psychiatric: Denies anxiety, depression or suicidal thoughts Endocrine Endocrinology: Denies polydipsia, polyphagia or polyuria Hematologic/Lymphatic Hematologic/Lymphatic: Denies easy bleeding, easy bruising or lymphadenopathy Allergic/Immunologic Allergic/Immunologic ED: Denies mouth swelling, tongue swelling or urticaria EXAM Physical Exam Const Vital Signs: 10/29/21 16:35 Temperature 97.9 F Temperature Source Temporal Pulse Rate 78 Respiratory Rate 16 Blood Pressure 145/78 H Blood Pressure Mean 100 Pulse Ox 99 Oxygen Delivery Method Room Air Positive well nourished and well developed General Appearance ED: well developed and NAD HEENT Reports TM's clear and moist mucous membranes normocephalic and atraumatic; Negative for trauma or tenderness Tympanic Membrane ED: Yes TM's clear Eyes PERRL and EOMs intact bilaterally General Eye ED: Negative for pale conjunctiva or scleral icterus Neck no lymphadenopathy, supple and no JVD General: Negative for tenderness Chest Wall inspection of chest normal and palpation of chest normal Chest: Negative for tenderness Resp normal respiratory effort and clear to auscultation bilaterally Effort and Inspection: Negative for respiratory distress or pain with movement Auscultation: Negative for rhonchi, wheezes or diminished lung sounds Cardio regular rate, regular rhythm, S1 normal heart sound, S2 normal heart sound and no murmurs Peripheral Pulses: pulses 2+ throughout GI normal to inspection, nondistended, normoactive bowel sounds, soft to palpation, non-distended and no masses GI Narrative: Tenderness diffusely. There is guarding. He has tenderness over the epigastric and right upper quadrant as well as the right lower quadrant. No rebound, rigidity, or peritoneal signs. Back/Spine no CVA tenderness and no thoracic nor lumbar tenderness Extremity normal to inspection General Extremety ED: Negative for edema General Extremity: Negative for edema Neuro oriented x3, CN's II-XII intact bilaterally, no sensory deficits noted and gait normal Sensorium / Orientation: awake, alert, oriented to person, oriented to place and oriented to time Motor Exam: strength 5/5 throughout and strength abnormal Psych mental status grossly normal Skin no rashes or lesions noted and no wounds MDM MDM MDM Narrative Medical decision making narrative: IV line established on arrival. Patient was medicated morphine and Zofran given normal saline. CBC with differential was normal. Chemistries unremarkable. LFTs were normal. Lactate was normal. Lipase was normal at 76. CT scan of the abdomen pelvis obtained with IV contrast that showed no acute disease process. This point etiology of patient's pain is unclear. I will write him a prescription for Prevacid and few [place] for pain. Patient advised to follow-up with Dr. Estefani Valle who is on-call for general surgery within the next 3 to 5 days if symptoms do not improve. Lab Data Attestation: I reviewed the patient's lab results. Labs: Laboratory Results - last 24 hr 10/29/21 10/29/21 10/29/21 17:20 17:20 17:20 WBC 9.3 RBC 5.25 Hgb 15.5 Hct 47.0 MCV 89.5 MCH 29.5 MCHC 33.0 RDW Std Deviation 44.6 H RDW Coeff of Meagan 13.5 Plt Count 399 MPV 11.3 Immature Gran % (Auto) 0.300 Neut % (Auto) 77.6 H Lymph % (Auto) 16.1 L [place] % (Auto) 5.5 Eos % (Auto) 0.1 Baso % (Auto) 0.4 Absolute Neuts (auto) 7.2 Absolute Lymphs (auto) 1.49 Nucleated RBC % 0 Sodium 134 L Potassium 3.8 Chloride 97 L Carbon Dioxide 29.0 Anion Gap 8 BUN 17 Creatinine 1.26 Estim Creat Clear Calc 60.48 Est GFR (MDRD) Af Amer 76 Est GFR (MDRD) Non-Af 63 BUN/Creatinine Ratio 13.5 Glucose 129 H Lactic Acid 1.3 Calcium 9.7 Total Bilirubin 0.60 AST 22 ALT 25 Alkaline Phosphatase 63 Total Protein 8.3 H Albumin 3.8 Globulin 4.5 H Albumin/Globulin Ratio 0.8 L Lipase 76 Radiography Diagnostic Testing: Clinical Impression(s) from Imaging Studies Abdomen/Pelvis CT 10/29/21 17:52 IMPRESSION: Normal enhanced CT of the abdomen and pelvis. Electronically Signed: Leroy Patel MD at 19:40 EDT , Discharge Plan Triage Chief Complaint: Abd Pain ED Provider: Rosalva Alberto Dx/Rx/DC Orders Clinical Impression: Abdominal pain Instructions: ED Abdominal Pain Unkn Cause Male... Prescriptions: New lansoprazole [Prevacid] 30 mg capsule,delayed release(DR/EC) 30 mg PO DAILY Qty: 14 0RF hydrocodone-acetaminophen [hydrocodone-acetaminophen] 5-325 mg tablet 1 tab PO Q4H PRN PRN (Reason: Pain) 2 Days Qty: 10 0RF No Action omeprazole [omeprazole] 20 MG capsule 20 mg PO DAILY Qty: 30 0RF sucralfate [Carafate] 1 gram tablet 1 g PO BID Qty: 20 0RF Primary Care Provider: Care Physician,No Primary Referrals: Becky Womack MD [Med Staff - Active Staff] - 3-5 Days Care Physician,No Primary [Primary Care Provider] - Disposition Disposition: Home, Self Care
[2021-10-29] MEDS: 0.9% Normal Saline 1,000 ML 125 ML IV (17:57)
[2021-10-29] MEDS: Morphine 4 MG/ML Syringe IV (17:57)
[2021-10-29] MEDS: Ondansetron 4 MG/2 ML Vial IV (17:57)
[2021-10-29 18:21] LABS: Absolute Lymphocyte Count 1.49 X10^3/uL (0.83-4.51); Absolute Neutrophil Count 7.2 X10^3/uL (2.0-7.7); Basophil# 0.04 X10^3/uL; Basophil% 0.4 % (0-1); Eosinophil# 0.01 X10^3/uL; Eosinophils% 0.1 % (0-5); Hemoglobin 15.5 g/dL (13.0-16.5); Lymphocyte # 1.49 X10^3/ul (0.83-4.51); Lymphocyte % 16.1 % (19-41); Mean Corpuscular Hgb 29.5 pg (27.0-32.0); Mean Corpuscular Volume 89.5 fL (80-94); Mean Platelet Vol. 11.3 fl (6.2-12.0); Monocyte# 0.51 X10^3/uL; Monocyte% 5.5 % (0-10); NRBC Flagged by Analyzer 0 % (0-5); Neutrophil % 77.6 % (47-70); Platelet Count 399 K/mm3 (150-450); RBC Distribution Width CV 13.5 % (11.6-14.6); RBC Distribution Width SD 44.6 fl (35.1-43.9); Red Blood Count 5.25 M/mm3 (4.6-6.2); White Blood Count 9.3 K/mm3 (4.4-11.0)
[2021-10-29 18:43] LABS: ALB/GLOB Ratio 0.8 RATIO (0.9-2.4); AST(SGOT) 22 U/L (15-37); Alanine Aminotransfer ALT/SGPT 25 U/L (16-61); Albumin, Serum 3.8 g/dL (3.2-5.0); Alkaline Phosphatase 63 U/L (45-117); Anion Gap 8 (5-15); BUN 17 mg/dL (7-18); BUN/Creat Ratio 13.5 RATIO (10-20); Calcium,Total 9.7 mg/dL (8.5-10.1); Chloride 97 mmol/L (98-107); Creatinine, Serum 1.26 mg/dL (0.70-1.30); EST Glomerular Filtration Rate 63 mL/min (>60); Est Glom Filt Rate - Afr Amer 76 mL/min (>60); Estimated Creatinine Clearance 60.48 ml/min; Globulin 4.5 g/dL (2.2-4.2); Glucose 129 mg/dL (74-106); Lactic Acid 1.3 mmol/L (0.4-1.9); Lipase 76 U/L (73-393); Potassium 3.8 mmol/L (3.5-5.1); Protein, Total 8.3 g/dL (6.4-8.2); Sodium Level 134 mmol/L (136-145)
[2021-10-29 20:27] VITALS: BP 136/90
== END 2021-10-29 20:27 | disposition home or self-care (01) ==
PROVIDERS: Emergency Provider Emergency Medicine; Visit Provider Emergency Medicine
DX: R10.9 Unspecified abdominal pain (principal); F17.290 Nicotine dependence, other tobacco product, uncomplicated
CPT/HCPCS: 74177; 80053; 83605; 83690; 85025; 96361; 96374; 96375; 99282; Q9967; A4216; J2405

== ENCOUNTER 2022-07-27 00:06 | Emergency (ER) | payer MEDICAID, SELFPAY ==
[2022-07-27 00:08] VITALS: BP 125/87; PULSE 84; RESP 18; TEMP 36.7; O2SAT 97; BMI 27.7
--- NOTE | 2022-07-27 00:20 | EDS_ITS ---
HPI History of Present Illness Chief Complaint: Lower Extremity Injury [facility] Medical History Cancer Home Medications omeprazole 20 mg capsule,delayed release 20 mg PO DAILY #30 caps 05/26/21 [Rx Last Taken Unknown] sucralfate 1 gram tablet (Carafate) 1 g PO BID #20 tabs 05/26/21 [Rx Last Taken Unknown] hydrocodone-acetaminophen 5-325mg 5mg-325mg 1 tab PO Q4H PRN PRN Pain 2 days #10 TABLETS 10/29/21 [Rx Last Taken Unknown] lansoprazole 30 mg capsule,delayed release (Prevacid) 30 mg PO DAILY #14 caps 10/29/21 [Rx Last Taken Unknown] Allergy/AdvReac Type Severity Reaction Status Date / Time naproxen [From Naprosyn] AdvReac Nausea Verified 10/29/21 16:35 Social History Smoking Status: Current some day smoker tobacco type: e-cigarettes EXAM Physical Exam Const Vital Signs: 07/27/22 00:08 Temperature 98.1 F Temperature Source Oral Pulse Rate 84 Respiratory Rate 18 Blood Pressure 125/87 H Blood Pressure Mean 99 Pulse Ox 97 Oxygen Delivery Method Room Air MDM MDM MDM Narrative Medical decision making narrative: HISTORY OF PRESENT ILLNESS: 56-year-old male here for left foot pain. Notes 2 weeks of atraumatic left foot pain that is worse with movement and palpation. Denies any inciting event. Patient denies active cancer, being bedridden for greater than 3 days, denies unilateral leg swelling, denies any varicose veins, denies any calf tenderness, denies any edema. Denies major surgery within 12 weeks, recent paralysis, previous DVT. Denies discoloration, loss of sensation. REVIEW OF SYSTEMS: Pertinent positives: Left foot pain Pertinent negatives: Numbness, tingling, Swelling PHYSICAL EXAM: Nursing triage notes reviewed, Vital signs reviewed Constitutional: please see mdm HENT: MMM Eyes: Pupils equal round and reactive to light, Extraocular muscles intact Neck: No stridor, no JVD, full neck ROM Lungs: Clear to auscultation, No wheezing or rales. No increased work of breathing, no conversational dyspnea, no accessory muscle use, no nasal flaring. No respiratory distress noted Heart: Regular rate and rhythm, No murmurs, No rubs and No gallops, 2+ distal pulses (radial, femoral, posterior tibial) in all extremities Abdomen: Soft, there is no tenderness, rigidity, rebound or guarding, no obvious peritoneal signs, no palpable pulsatile abdominal masses, no auscultated abdominal bruit : No CVAT Extremities: No edema, no calf tenderness, diffuse TTP over entire left foot Neuro: Intact sensation L1-S1 dermatomal distributions. Intact 5/5 strength in hip flexion (T12-L3). Knee extension (L2-L4). Ankle dorsiflexion (L4-L5). Ankle plantar flexion (S1). Great toe extension (L5). 2+ patellar and Achilles DTRs. Skin: No rash or lesions noted, no crepitus or bullae, no fluctuance or induration MEDICAL DECISION MAKING: Chief Complaint: Left foot pain External records reviewed: X-ray of the left foot from 2020 shows erosive changes of first and second toes inflammatory arthropathy versus osteomyelitis Factors affecting care: , GERD Social determinants of health: Current every day smoker History obtained from others: The patient significant other Consults: None ALL IMAGES (IF OBTAINED) HAVE BEEN PERSONALLY REVIEWED AND INTERPRETED BY MYSELF. MDM Narrative: Patient was hemodynamically stable, afebrile, nontoxic-appearing.. Left lower extremity was neurovascular intact. No obvious deformities, no skin lesions, no rashes, pulses were intact, no stigmata of DVT, compartments are soft. I considered the following differential diagnosis: Fracture, dislocation, DVT, myelitis, arterial occlusion, compartment syndrome, necrotizing fasciitis No clinical evidence to suggest any of the before mentioned emergent conditions. Unclear etiology recommended ice, ibuprofen and Tylenol and PCP follow-up. The patient and/or family, caregivers express understanding. The patient and/or family, caregivers agrees with the plan. Total critical care time today provided was at least 0 minutes. This excludes separately billable procedures. Critical care time (if documented) is secondary to the patient having high probability of clinically significant/life thre atening deterioration in the patient's condition which required my urgent intervention. Shared decision making: I will have a discussion with the patient and or visitors regarding risk/benefits of further testing or admission. They will be made aware of of the risk/benefits inherent in this decision they will be given the opportunity to voice understanding. Discharge Plan Triage Chief Complaint: Lower Extremity Injury ED Provider: Hemant Krishnamurthy Dx/Rx/DC Orders Clinical Impression: Acute foot pain Instructions: ED Contusion, Lower Extremity Prescriptions: No Action omeprazole [omeprazole] 20 MG capsule 20 mg PO DAILY Qty: 30 0RF sucralfate [Carafate] 1 gram tablet 1 g PO BID Qty: 20 0RF lansoprazole [Prevacid] 30 mg capsule,delayed release(DR/EC) 30 mg PO DAILY Qty: 14 0RF hydrocodone-acetaminophen [hydrocodone-acetaminophen] 5-325 mg tablet 1 tab PO Q4H PRN PRN (Reason: Pain) 2 Days Qty: 10 0RF Primary Care Provider: Care Physician,No Primary Referrals: Care Physician,No Primary [Primary Care Provider] - Activity Restrictions/Additional Instructions: Thank you for trusting us with your care today! Please take Tylenol (2 pills, 650 mg), ibuprofen (2 pills, 400 mg) every 6 hours as needed for pain and fever control. These use ice as well please ice your painful extremity for 20 minutes in a bucket of ice water. This will alleviate any pain that you experience. Please return to the emergency department if your symptoms change or worsen. Please follow with your primary care physician for further outpatient evaluation and management. Disposition Disposition: Home, Self Care
== END 2022-07-27 00:52 | disposition home or self-care (01) ==
LOC: ED 00:50
PROVIDERS: Emergency Provider Emergency Medicine; Visit Provider Emergency Medicine
DX: M79.672 Pain in left foot (principal); K21.9 Gastro-esophageal reflux disease without esophagitis; F17.290 Nicotine dependence, other tobacco product, uncomplicated
CPT/HCPCS: 99282

== ENCOUNTER 2022-08-07 13:02 | Emergency (ER) | payer MEDICAID, SELFPAY ==
[2022-08-07 13:03] VITALS: BP 135/82; PULSE 76; RESP 16; TEMP 36.7; O2SAT 100; BMI 27.5
--- NOTE | 2022-08-07 13:05 | ED.VIS.GI ---
HPI HPI - GI History of Present Illness Chief Complaint: Abd Pain Narrative Narrative: 56-year-old male presenting with abdominal pain. He describes it as epigastric in nature. It has been present for about 3 days. He has been vomiting. He states now he feels dizzy. He tells me he has no medical problems. He tells me he does not take any medicine on a regular basis. No fevers. No diarrhea. No constipation. He denies any surgical history in his abdomen. He states he is not a drinker or smoker. [facility] Medical History Cancer Home Medications omeprazole 20 mg capsule,delayed release 20 mg PO DAILY #30 caps 05/26/21 [Rx Last Taken Unknown] sucralfate 1 gram tablet (Carafate) 1 g PO BID #20 tabs 05/26/21 [Rx Last Taken Unknown] hydrocodone-acetaminophen 5-325mg 5mg-325mg 1 tab PO Q4H PRN PRN Pain 2 days #10 TABLETS 10/29/21 [Rx Last Taken Unknown] lansoprazole 30 mg capsule,delayed release (Prevacid) 30 mg PO DAILY #14 caps 10/29/21 [Rx Last Taken Unknown] ondansetron 4 mg disintegrating tablet 4 mg PO Q8H PRN PRN Nausea #20 tabs 08/07/22 [Rx Last Taken Unknown] sucralfate 100 mg/mL oral suspension (Carafate) 10 ml PO BID PRN stomach upset #400 mL 08/07/22 [Rx Last Taken Unknown] Allergy/AdvReac Type Severity Reaction Status Date / Time naproxen [From Naprosyn] AdvReac Nausea Verified 10/29/21 16:35 Social History Smoking Status: Current some day smoker tobacco type: e-cigarettes ROS ROS ED Constitutional Constitutional ED: Denies chills or fever(s) Eyes Eyes: Denies blurry vision or change in vision ENT ENT ED: Denies ear pain or sore throat Cardiovascular Cardiovascular: Denies chest pain, palpitations or racing heartbeat Respiratory/Chest Respiratory/Chest: Denies cough, dyspnea or sputum Gastrointestinal Gastrointestinal: Reports abdominal pain, nausea and vomiting; Denies constipation or diarrhea Genitourinary Genitourinary ED: Denies dysuria, hematuria or urinary frequency Musculoskeletal Musculoskeletal: Denies arthralgias, myalgias or neck pain Integumentary Denies abscess, Abrasions or rash Neurologic Neurologic: Denies headache(s), paresthesias or weakness Psychiatric Psychiatric: Denies anxiety, depression, suicidal ideation or suicidal thoughts Endocrine Endocrinology: Denies polydipsia or polyuria EXAM Physical Exam Const Vital Signs: 08/07/22 13:03 08/07/22 14:46 Temperature 98.0 F Temperature Source Oral Pulse Rate 76 71 Respiratory Rate 16 14 Blood Pressure 135/82 H 144/84 H Blood Pressure Mean 99 104 Pulse Ox 100 100 Oxygen Delivery Method Room Air Room Air General Appearance ED: Negative for pallor HEENT Reports normocephalic, head/scalp atraumatic and moist mucous membranes Eyes PERRL and EOMs intact bilaterally Neck no lymphadenopathy Chest Wall inspection of chest normal and palpation of chest normal Resp normal respiratory effort Auscultation: Negative for rales, rhonchi or wheezes Cardio regular rate and regular rhythm GI Auscultation: normoactive bowel sounds Palpation: tender epigastric Narrative: Deferred Extremity normal to inspection General Extremety ED: Yes edema and tenderness General Extremity: edema Neuro oriented x3 and CN's II-XII intact bilaterally Sensorium / Orientation: alert Motor Exam: strength 5/5 throughout Psych mental status grossly normal Attitude: No agitated Skin no rashes or lesions noted and no wounds General Skin Exam: Negative for jaundice or pallor MDM MDM MDM Narrative Medical decision making narrative: Patient presenting with epigastric pain. He is also been vomiting. Differential includes but is not limited to GERD, gastritis, peptic ulcer disease, acute cholecystitis, acute cholelithiasis, Boerhaave's, viral syndrome, dehydration, electrolyte abnormalities. Patient medicated with morphine, Zofran. He is given a liter normal saline. CBC was obtained to assess white blood cell count, hemoglobin, platelets. CMP to assess liver function, renal function, electrolytes. Lipase to assess for pancreatitis. Urine drug screen was also added to assess for drug abuse. EtOH was also obtained. Patient's lab work-up is ultimately unremarkable. Urinalysis was positive for cannabinoids. On reevaluation he requested more nausea medicine and pain medicine. He was given Reglan and morphine. He feels better as I reevaluated again. He was given a GI cocktail. I will discharge him home with Carafate and Zofran. I do not believe he needs any imaging. Return precautions discussed. Impression: 1. Cannabinoid use 2. Epigastric pain 3. nausea/vomiting Lab Data Labs: Laboratory Results - last 24 hr 08/07/22 08/07/22 08/07/22 13:20 13:30 13:30 WBC 7.9 RBC 4.56 L Hgb 13.3 Hct 39.8 L MCV 87.3 MCH 29.2 MCHC 33.4 RDW Std Deviation 43.2 RDW Coeff of Meagan 13.5 Plt Count 378 MPV 10.6 Immature Gran % (Auto) 0.400 Neut % (Auto) 75.9 H Lymph % (Auto) 15.9 L [place] % (Auto) 7.0 Eos % (Auto) 0.0 Baso % (Auto) 0.8 Absolute Neuts (auto) 6.0 Absolute Lymphs (auto) 1.25 Nucleated RBC % 0 Sodium 136 Potassium 3.4 L Chloride 103 Carbon Dioxide 29.0 Anion Gap 4 L BUN 14 Creatinine 1.09 Estim Creat Clear Calc 69.06 Est GFR (MDRD) Af Amer 89 Est GFR (MDRD) Non-Af 74 BUN/Creatinine Ratio 12.8 Glucose 102 Calcium 9.0 Total Bilirubin 0.40 AST 13 L ALT 17 Alkaline Phosphatase 66 Total Protein 7.6 Albumin 3.4 Globulin 4.2 Albumin/Globulin Ratio 0.8 L Lipase 20 Urine Opiates Screen NEGATIVE Urine Methadone Screen NEGATIVE Ur Barbiturates Screen NEGATIVE Ur Phencyclidine Scrn NEGATIVE Ur Amphetamines Screen NEGATIVE MDMA (Ecstasy) Screen NEGATIVE U Benzodiazepines Scrn NEGATIVE Urine Cocaine Screen NEGATIVE U Cannabinoids Screen POSITIVE H Ur Drug Screen Comment Ethyl Alcohol 08/07/22 13:30 WBC RBC Hgb Hct MCV MCH MCHC RDW Std Deviation RDW Coeff of Meagan Plt Count MPV Immature Gran % (Auto) Neut % (Auto) Lymph % (Auto) [place] % (Auto) Eos % (Auto) Baso % (Auto) Absolute Neuts (auto) Absolute Lymphs (auto) Nucleated RBC % Sodium Potassium Chloride Carbon Dioxide Anion Gap BUN Creatinine Estim Creat Clear Calc Est GFR (MDRD) Af Amer Est GFR (MDRD) Non-Af BUN/Creatinine Ratio Glucose Calcium Total Bilirubin AST ALT Alkaline Phosphatase Total Protein Albumin Globulin Albumin/Globulin Ratio Lipase Urine Opiates Screen Urine Methadone Screen Ur Barbiturates Screen Ur Phencyclidine Scrn Ur Amphetamines Screen MDMA (Ecstasy) Screen U Benzodiazepines Scrn Urine Cocaine Screen U Cannabinoids Screen Ur Drug Screen Comment Ethyl Alcohol < 3.0 Discharge Plan Triage Chief Complaint: Abd Pain ED Provider: Jean Marie Farooq Dx/Rx/DC Orders Instructions: ED Abdominal Pain Unkn Cause Male... Prescriptions: New ondansetron 4 mg tablet,disintegrating 4 mg PO Q8H PRN PRN (Reason: Nausea) Qty: 20 0RF sucralfate [Carafate] 100 mg/mL suspension 10 ml PO BID PRN (Reason: stomach upset) Qty: 400 0RF No Action omeprazole [omeprazole] 20 MG capsule 20 mg PO DAILY Qty: 30 0RF sucralfate [Carafate] 1 gram tablet 1 g PO BID Qty: 20 0RF lansoprazole [Prevacid] 30 mg capsule,delayed release(DR/EC) 30 mg PO DAILY Qty: 14 0RF hydrocodone-acetaminophen [hydrocodone-acetaminophen] 5-325 mg tablet 1 tab PO Q4H PRN PRN (Reason: Pain) 2 Days Qty: 10 0RF Primary Care Provider: Care Physician,No Primary Referrals: Brian,Abdiazzi, [Med Staff - Active Staff] - 3-5 Days Care Physician,No Primary [Primary Care Provider] - Disposition Disposition: Home, Self Care
[2022-08-07] MEDS: 0.9% Normal Saline 1,000 ML 1000 ML IV (13:16)
[2022-08-07] MEDS: Ondansetron 4 MG/2 ML Vial IV (13:17)
[2022-08-07] MEDS: Morphine 4 MG/ML Syringe IV ×2 (13:17→14:57)
[2022-08-07 13:53] LABS: Absolute Lymphocyte Count 1.25 X10^3/uL (0.83-4.51); Basophil# 0.06 X10^3/uL; Basophil% 0.8 % (0-1); Hematocrit 39.8 % (40-54); Hemoglobin 13.3 g/dL (13.0-16.5); Lymphocyte # 1.25 X10^3/ul (0.83-4.51); Lymphocyte % 15.9 % (19-41); Mean Corp Hgb Conc 33.4 g/dL (32-36); Mean Corpuscular Hgb 29.2 pg (27.0-32.0); Mean Corpuscular Volume 87.3 fL (80-94); Mean Platelet Vol. 10.6 fl (6.2-12.0); Monocyte# 0.55 X10^3/uL; NRBC Flagged by Analyzer 0 % (0-5); Neutrophil # 5.96 X10^3/uL (2.7-7.7); Neutrophil % 75.9 % (47-70); Platelet Count 378 K/mm3 (150-450); RBC Distribution Width CV 13.5 % (11.6-14.6); RBC Distribution Width SD 43.2 fl (35.1-43.9); Red Blood Count 4.56 M/mm3 (4.6-6.2); White Blood Count 7.9 K/mm3 (4.4-11.0)
[2022-08-07 14:04] LABS: ALB/GLOB Ratio 0.8 RATIO (0.9-2.4); AST(SGOT) 13 U/L (15-37); Alanine Aminotransfer ALT/SGPT 17 U/L (16-61); Albumin, Serum 3.4 g/dL (3.2-5.0); Alkaline Phosphatase 66 U/L (45-117); Anion Gap 4 (5-15); BUN 14 mg/dL (7-18); BUN/Creat Ratio 12.8 RATIO (10-20); Chloride 103 mmol/L (98-107); Creatinine, Serum 1.09 mg/dL (0.70-1.30); EST Glomerular Filtration Rate 74 mL/min (>60); Est Glom Filt Rate - Afr Amer 89 mL/min (>60); Estimated Creatinine Clearance 69.06 ml/min; Globulin 4.2 g/dL (2.2-4.2); Glucose 102 mg/dL (74-106); Lipase 20 U/L (13-75); Potassium 3.4 mmol/L (3.5-5.1); Protein, Total 7.6 g/dL (6.4-8.2); Sodium Level 136 mmol/L (136-145)
[2022-08-07 14:10] LABS: Amphetamine Urine VISTA NEGATIVE (<1000 ng/mL); Barbiturate Urine VISTA NEGATIVE (< 200 ng/mL); Benzodiazepine Urine VISTA NEGATIVE (< 200 ng/mL); Cocaine Urine VISTA NEGATIVE (< 300 ng/mL); Ecstacy Urine VISTA NEGATIVE (< 500 ng/mL); Methadone Urine VISTA NEGATIVE (< 300 ng/mL); PCP Urine VISTA NEGATIVE (< 25 ng/mL); THC Urine VISTA POSITIVE (< 50 ng/mL); Vista UDS pH Range 6
[2022-08-07 14:43] LABS: Alcohol, Blood (Medical)-Serum < 3.0 mg/dL
[2022-08-07 14:46] VITALS: BP 144/84; PULSE 71; RESP 14; O2SAT 100
[2022-08-07] MEDS: Metoclopramide 10 MG/2 ML Vial IV (14:52)
[2022-08-07] MEDS: Mag Hydrox/Al Hydrox/Simeth 30 ML UDC PO (15:33)
== END 2022-08-07 16:11 | disposition home or self-care (01) ==
PROVIDERS: Emergency Provider Student in an Organized Health Care Education/Training Program; Visit Provider Student in an Organized Health Care Education/Training Program
DX: R10.13 Epigastric pain (principal); R11.2 Nausea with vomiting, unspecified; F17.290 Nicotine dependence, other tobacco product, uncomplicated
CPT/HCPCS: 80053; 80307; 82077; 83690; 85025; 96361; 96374; 96375; 96376; 99285; J7030; A4216; J2405

== ENCOUNTER 2022-10-03 16:24 | Emergency (ER) | payer MEDICAID, SELFPAY ==
[2022-10-03 16:26] VITALS: BP 116/90; PULSE 77; RESP 18; TEMP 36.8; O2SAT 100
== END 2022-10-03 17:30 | disposition left against medical advice (07) ==
LOC: ED 17:32
DX: Z53.21 Procedure and treatment not carried out due to patient leaving prior to being seen by health care provider (principal)

== ENCOUNTER 2022-10-04 03:12 | Emergency (ER) | payer SELFPAY ==
[2022-10-04 03:13] VITALS: BP 128/73; PULSE 72; RESP 18; TEMP 36.4; O2SAT 98; BMI 25.7
--- NOTE | 2022-10-04 03:21 | EKG12_ITS ---
Test Reason : abd pain Blood Pressure : / mmHG Vent. Rate : 069 BPM Atrial Rate : 069 BPM P-R Int : 130 ms QRS Dur : 094 ms QT Int : 414 ms P-R-T Axes : 043 -02 -23 degrees QTc Int : 443 ms Poor data quality, interpretation may be adversely affected Sinus rhythm with occasional Premature ventricular complexes Nonspecific T wave abnormality Abnormal ECG Confirmed by DAPHNEY PERDUE ([id number]), senior technical editor JOSHUA ROBINS ([id number]) on 10/09/2022 8:29:10 AM Referred By: Jacob Confirmed By:DAPHNEY PERDUE
--- NOTE | 2022-10-04 03:21 | CT_ITS ---
EXAM: CT ABDOMEN AND PELVIS WITH INTRAVENOUS CONTRAST CLINICAL INDICATION: abdominal pain TECHNIQUE: Helically acquired images were obtained of the abdomen and pelvis with intravenous contrast. This CT exam was performed using one or more of the following dose reduction techniques: automated exposure control, adjustment of the mA and/or kV according to patient size, and/or use of iterative reconstruction technique. CONTRAST: 100 cc of Isovue-370 IV. RADIATION DOSE: CTDIvol = 13.13 mGy, DLP = 663.77 mGy-cm COMPARISON: 10/29/2021. FINDINGS: LOWER THORAX: Unremarkable. Lung bases are clear. No cardiomegaly. No significant pericardial effusion. ABDOMEN: LIVER: There is diffuse low-attenuation of the liver. Small scattered cysts in the liver. GALLBLADDER AND BILE DUCTS: Unremarkable. No calcified gallstones. No gallbladder distention or wall edema. No intra- or extrahepatic biliary ductal dilation. PANCREAS: Unremarkable. No focal cystic or solid mass. SPLEEN: Unremarkable. Normal size without focal cystic or solid mass. ADRENALS: Unremarkable. No nodules. KIDNEYS AND URETERS: Unremarkable. Normal renal size and position. No hydronephrosis. STOMACH AND BOWEL: Unremarkable. No stomach or bowel distention. No focal inflammatory change. PELVIS: APPENDIX: No evidence of acute appendicitis. BLADDER: Unremarkable. REPRODUCTIVE: Unremarkable as visualized. No mass. ABDOMEN and PELVIS: INTRAPERITONEAL SPACE: Unremarkable. No ascites or other fluid collection. No free air. BONES/JOINTS: Unremarkable. No suspicious lytic or blastic abnormality. SOFT TISSUES: Unremarkable. No discrete abdominal or pelvic wall hernia. VASCULATURE: Unremarkable. Abdominal aorta is non-dilated. LYMPH NODES: Unremarkable. No enlarged lymph nodes. CT/Abdomen/Pelvis W IV Cont ONLY IMPRESSION: Fatty liver. Electronically Signed: Jose Manuel Tejeda MD at 4:32 EDT ,
--- NOTE | 2022-10-04 03:22 | EDS_ITS ---
HPI HPI - GI History of Present Illness Chief Complaint: Abd Pain Detail of Chief Complaint: Abdominal pain Informant: patient Abdominal Pain/Flank Pain Current Severity: 09/27 Narrative Narrative: Patient presents to the emergency department with complaint of abdominal pain that he said for about a week off-and-on. Pain typically brought on by eating or trying to drink. He has vomited frequently. He denies any diarrhea currently but had 1 episode yesterday. He denies any fevers. Denies urinary symptoms. No prior abdominal surgeries. Pain is in his upper abdomen. Pain at times radiates into his chest. Patient was brought to the emergency department yesterday by EMS however he left prior to being evaluated by physician. [facility] Medical History Cancer Home Medications lansoprazole 30 mg capsule,delayed release (Prevacid) 30 mg PO DAILY #14 caps 10/04/22 [Rx Last Taken Unknown] Allergy/AdvReac Type Severity Reaction Status Date / Time naproxen [From Naprosyn] AdvReac Nausea Verified 10/04/22 03:13 Social History Smoking Status: Current some day smoker tobacco type: e-cigarettes ROS ROS ED Review of Systems ROS Unobtainable: other Constitutional Constitutional ED: Reports lethargy; Denies chills, fever(s), sweats or weight loss Eyes Eyes: Denies blurry vision, change in vision or diplopia ENT ENT ED: Denies rhinorrhea or sore throat Cardiovascular Cardiovascular: Denies chest pain, orthopnea or racing heartbeat Respiratory/Chest Respiratory/Chest: Denies cough, dyspnea, dyspnea on exertion, orthopnea or sputum Gastrointestinal Gastrointestinal: Reports abdominal pain, nausea and vomiting; Denies diarrhea Genitourinary Genitourinary ED: Denies dysuria, hematuria or urinary frequency Musculoskeletal Musculoskeletal: Denies arthralgias, back pain, myalgias or neck pain Integumentary Denies abscess, Abrasions or rash Neurologic Neurologic: Denies headache(s) or weakness Psychiatric Psychiatric: Denies anxiety, depression or suicidal thoughts Endocrine Endocrinology: Denies polydipsia, polyphagia or polyuria Hematologic/Lymphatic Hematologic/Lymphatic: Denies easy bleeding, easy bruising or lymphadenopathy Allergic/Immunologic Allergic/Immunologic ED: Denies mouth swelling, tongue swelling or urticaria EXAM Physical Exam Const Vital Signs: 10/04/22 03:13 Temperature 97.6 F L Temperature Source Temporal Pulse Rate 72 Respiratory Rate 18 Blood Pressure 128/73 H Blood Pressure Mean 91 Pulse Ox 98 Oxygen Delivery Method Room Air Positive well nourished and well developed General Appearance ED: well developed and NAD HEENT Reports TM's clear and moist mucous membranes normocephalic and atraumatic; Negative for trauma or tenderness Tympanic Membrane ED: Yes TM's clear Eyes PERRL and EOMs intact bilaterally General Eye ED: Negative for pale conjunctiva or scleral icterus Neck no lymphadenopathy, supple and no JVD General: Negative for tenderness Chest Wall inspection of chest normal and palpation of chest normal Chest: Negative for tenderness Resp normal respiratory effort and clear to auscultation bilaterally Effort and Inspection: Negative for respiratory distress or pain with movement Auscultation: Negative for rhonchi, wheezes or diminished lung sounds Cardio regular rate, regular rhythm, S1 normal heart sound, S2 normal heart sound and no murmurs Peripheral Pulses: pulses 2+ throughout GI normal to inspection, nondistended, normoactive bowel sounds, soft to palpation, non-distended and no masses GI Narrative: Tender to palpation in the epigastric region with guarding. There is no rebound, rigidity, or peritoneal signs. No significant tenderness in the lower abdomen. Back/Spine no CVA tenderness and no thoracic nor lumbar tenderness Extremity normal to inspection General Extremety ED: Negative for edema General Extremity: Negative for edema Neuro oriented x3, CN's II-XII intact bilaterally, no sensory deficits noted and gait normal Sensorium / Orientation: awake, alert, oriented to person, oriented to place and oriented to time Motor Exam: strength 5/5 throughout and strength abnormal Psych mental status grossly normal Skin no rashes or lesions noted and no wounds MDM MDM MDM Narrative Medical decision making narrative: Patient with abdominal pain for 1 week. Pain mostly in the upper abdomen. In the differential would be gastritis versus gallbladder disease versus pancreatitis versus bowel obstruction. IV line established. Patient was medicated with Dilaudid and Zofran and he had good pain relief with that. I did order a bolus of Protonix. CBC with differential obtained showed a normal white count of 8.7 with a hemoglobin of 14.2 and platelet count of 415. Chemistries show a sodium of 131 with potassium of 4.0 chloride of 95. BUN 16 and creat inine 1.1. LFTs were normal. Lactate normal at 1.3. Lipase was normal. EKG obtained arrival showed a sinus rhythm with a rate of 69 bpm with occasional PVCs and nonspecific ST changes. Troponin was normal. CT scan of the abdomen pelvis essentially unremarkable. This point patient will be discharged to home diagnosis abdominal pain. He will be referred to GI for follow-up. We will start patient on Prevacid. Lab Data Attestation: I reviewed the patient's lab results. Labs: Laboratory Results - last 24 hr 10/04/22 03:18 WBC 8.7 RBC 4.86 Hgb 14.2 Hct 42.8 MCV 88.1 MCH 29.2 MCHC 33.2 RDW Std Deviation 42.9 RDW Coeff of Meagan 13.2 Plt Count 415 MPV 10.6 Immature Gran % (Auto) 0.300 Neut % (Auto) 62.9 Lymph % (Auto) 24.4 [place] % (Auto) 11.0 H Eos % (Auto) 0.5 Baso % (Auto) 0.9 Absolute Neuts (auto) 5.5 Absolute Lymphs (auto) 2.13 Nucleated RBC % 0 Sodium 131 L Potassium 4.0 Chloride 95 L Carbon Dioxide 31.0 Anion Gap 5 BUN 16 Creatinine 1.10 Estim Creat Clear Calc 68.44 Est GFR (MDRD) Af Amer 88 Est GFR (MDRD) Non-Af 73 BUN/Creatinine Ratio 14.5 Glucose 113 H Lactic Acid 1.3 Calcium 8.7 Total Bilirubin 0.50 AST 31 ALT 19 Alkaline Phosphatase 59 Troponin I High Sens 6 Total Protein 7.5 Albumin 3.4 Globulin 4.1 Albumin/Globulin Ratio 0.8 L Lipase 25 Radiography Diagnostic Testing: Clinical Impression(s) from Imaging Studies Abdomen/Pelvis CT 10/04/22 03:21 IMPRESSION: Fatty liver. Electronically Signed: Jose Manuel Tejeda MD at 4:32 EDT , EKG Initial EKG: Attestation: I personally reviewed and interpreted this EKG as follows: Comments: Sinus rhythm with a rate of 69 bpm with PVCs and nonspecific ST changes Discharge Plan Triage Chief Complaint: Abd Pain ED Provider: Rosalva Alberto Dx/Rx/DC Orders Clinical Impression: Abdominal pain Instructions: ED Abdominal Pain Unkn Cause Male... Prescriptions: New lansoprazole [Prevacid] 30 mg capsule,delayed release(DR/EC) 30 mg PO DAILY Qty: 14 0RF Primary Care Provider: Care Physician,No Primary Referrals: Friend,Abdiaziz, [Med Staff - Active Staff] - 3-5 Days Care Physician,No Primary [Primary Care Provider] - Disposition Disposition: Home, Self Care
[2022-10-04] MEDS: Ondansetron 4 MG/2 ML Vial IV (03:30)
[2022-10-04] MEDS: HYDROmorphone 1 MG/ML Syringe IV (03:30)
[2022-10-04 03:32] LABS: Absolute Lymphocyte Count 2.13 X10^3/uL (0.83-4.51); Absolute Neutrophil Count 5.5 X10^3/uL (2.0-7.7); Basophil# 0.08 X10^3/uL; Basophil% 0.9 % (0-1); Eosinophil# 0.04 X10^3/uL; Eosinophils% 0.5 % (0-5); Hematocrit 42.8 % (40-54); Hemoglobin 14.2 g/dL (13.0-16.5); Lymphocyte # 2.13 X10^3/ul (0.83-4.51); Lymphocyte % 24.4 % (19-41); Mean Corp Hgb Conc 33.2 g/dL (32-36); Mean Corpuscular Hgb 29.2 pg (27.0-32.0); Mean Corpuscular Volume 88.1 fL (80-94); Mean Platelet Vol. 10.6 fl (6.2-12.0); Monocyte# 0.96 X10^3/uL; NRBC Flagged by Analyzer 0 % (0-5); Neutrophil # 5.48 X10^3/uL (2.7-7.7); Neutrophil % 62.9 % (47-70); Platelet Count 415 K/mm3 (150-450); RBC Distribution Width CV 13.2 % (11.6-14.6); RBC Distribution Width SD 42.9 fl (35.1-43.9); Red Blood Count 4.86 M/mm3 (4.6-6.2); White Blood Count 8.7 K/mm3 (4.4-11.0)
[2022-10-04] MEDS: 0.9% Normal Saline 1,000 ML 125 ML IV (03:44)
[2022-10-04 04:15] LABS: ALB/GLOB Ratio 0.8 RATIO (0.9-2.4); AST(SGOT) 31 U/L (15-37); Alanine Aminotransfer ALT/SGPT 19 U/L (16-61); Albumin, Serum 3.4 g/dL (3.2-5.0); Alkaline Phosphatase 59 U/L (45-117); Anion Gap 5 (5-15); BUN 16 mg/dL (7-18); BUN/Creat Ratio 14.5 RATIO (10-20); Calcium,Total 8.7 mg/dL (8.5-10.1); Chloride 95 mmol/L (98-107); EST Glomerular Filtration Rate 73 mL/min (>60); Est Glom Filt Rate - Afr Amer 88 mL/min (>60); Estimated Creatinine Clearance 68.44 ml/min; Globulin 4.1 g/dL (2.2-4.2); Glucose 113 mg/dL (74-106); Lactic Acid 1.3 mmol/L (0.4-1.9); Lipase 25 U/L (13-75); Protein, Total 7.5 g/dL (6.4-8.2); Sodium Level 131 mmol/L (136-145); Troponin-I HS 6 pg/mL (3.0-78.0)
[2022-10-04 04:52] VITALS: BP 118/63; PULSE 74; RESP 16; O2SAT 99
== END 2022-10-04 04:54 | disposition home or self-care (01) ==
PROVIDERS: Emergency Provider Emergency Medicine; Visit Provider Emergency Medicine
DX: R10.9 Unspecified abdominal pain (principal); R11.10 Vomiting, unspecified; F17.290 Nicotine dependence, other tobacco product, uncomplicated
CPT/HCPCS: 74177; 80053; 83605; 83690; 84484; 85025; 93005; 96361; 96374; 96375; 99285; J7030; Q9967; A4216; J2405; J3490

== ENCOUNTER 2023-07-10 15:15 | Emergency (ER) | payer MEDICAID, SELFPAY ==
[2023-07-10 15:16] VITALS: BP 134/81; PULSE 77; RESP 18; TEMP 36.8; O2SAT 100; BMI 27.8
--- NOTE | 2023-07-10 15:26 | ED.VIS.GI ---
HPI HPI - GI History of Present Illness Chief Complaint: Abd Pain Informant: patient Abdominal Pain/Flank Pain Onset: Yesterday Context: Gradual Onset Timing: Intermittent Quality: Aching Location: Epigastric and RUQ Worsened by: Nothing Relieved by: - (Laying down) Nausea/Vomiting/Emesis GI Symptom: Positive for Nausea and Vomiting Quality: Positive for Nonbilious; Negative for Blood streaks, Coffee ground or Hematemesis Diarrhea/Melena/Hematochezia GI Symptom: Negative for Diarrhea, Melena or Hematochezia Associated Symptoms Associated Symptoms: Negative for Dysuria, Frequency or Hematuria Narrative Narrative: Patient presents with abdominal pain that began yesterday. Patient states it has been intermittent. Patient states it came on gradually. Patient states that the pain is mainly over the right upper quadrant and right lower chest. Patient states it is better when he lays down. Patient states nothing makes it worse. Patient admits to some nausea and vomiting. Patient denies any hematemesis or coffee-ground emesis. Patient denies any diarrhea, melena, or hematochezia. Patient denies any urinary complaints. PFSH PFS Medical History Cancer Allergy/AdvReac Type Severity Reaction Status Date / Time naproxen (From Naprosyn) AdvReac Nausea Verified 07/10/23 15:18 Surgical History no surgical history no surgical history Social History Smoking Status: Current some day smoker tobacco type: e-cigarettes ROS ROS ED Constitutional Constitutional ED: Denies chills or fever(s) Eyes Eyes: Denies blurry vision or change in vision ENT ENT ED: Denies rhinorrhea or sore throat Cardiovascular Cardiovascular: Reports chest pain; Denies palpitations Respiratory/Chest Respiratory/Chest: Denies cough or dyspnea Gastrointestinal Gastrointestinal: Reports abdominal pain, nausea and vomiting; Denies constipation or diarrhea Genitourinary Genitourinary ED: Denies dysuria or hematuria Musculoskeletal Musculoskeletal: Reports back pain; Denies neck pain Integumentary Denies abscess or rash Neurologic Neurologic: Denies headache(s) or weakness Allergic/Immunologic Allergic/Immunologic ED: Denies mouth swelling or urticaria EXAM Physical Exam Const Vital Signs: 07/10/23 15:16 07/10/23 17:15 07/10/23 19:00 Temperature 98.3 F Temperature Source Temporal Pulse Rate 77 72 Respiratory Rate 18 16 Blood Pressure 134/81 H 133/71 H 142/80 H Blood Pressure Mean 98 91 100 Pulse Ox 100 99 Oxygen Delivery Method Room Air Room Air Positive well nourished and well developed General Appearance ED: well developed and NAD HEENT Reports moist mucous membranes Neck supple and no JVD Resp normal respiratory effort and clear to auscultation bilaterally Cardio regular rate and regular rhythm GI non-distended Palpation: soft and tender epigastric, LUQ and RUQ; Negative for guarding or rebound tenderness present Extremity full ROM Neuro CN's II-XII intact bilaterally, moves all extremities and no sensory deficits noted Sensorium / Orientation: alert Motor Exam: strength 5/5 throughout Psych mental status grossly normal Skin Rashes: no rashes MDM MDM MDM Narrative Medical decision making narrative: Differential diagnosis includes pancreatitis, peptic ulcer disease, gastric ulcer, duodenal ulcer, bowel obstruction, perforation, pyelonephritis, cardiac dysrhythmia, cardiac ischemia, and electrolyte abnormalities. EKG will be obtained to assess for cardiac dysrhythmia and cardiac ischemia. Chest x-ray will be obtained to assess for pneumonia and pneumothorax. CBC will be obtained to assess for leukocytosis and anemia. Comprehensive metabolic profile will be obtained to assess for hepatic function, renal function, and electrolyte abnormality. Lipase will be obtained to assess for pancreatitis. High-sensitivity troponin will be obtained to assess for cardiac ischemia. Lab Data Attestation: I reviewed the patient's lab results. Lab results narrative: CBC was reviewed and was within normal limits. Comprehensive metabolic profile was reviewed. Glucose was slightly elevated at 121. The remainder is within normal limits. Lipase was reviewed and was normal at 24. High-sensitivity troponin was reviewed and was normal at 3. Urinalysis was reviewed. There is no evidence of urinary tract infection or hematuria. Labs: Laboratory Results - last 24 hr 07/10/23 07/10/23 15:50 17:30 WBC 8.8 RBC 5.02 Hgb 14.5 Hct 44.6 MCV 88.8 MCH 28.9 MCHC 32.5 RDW Std Deviation 45.9 H RDW Coeff of Meagan 14.2 Plt Count 391 MPV 10.8 Immature Gran % (Auto) 0.300 Neut % (Auto) 82.3 H Lymph % (Auto) 10.8 L [place] % (Auto) 6.1 Eos % (Auto) 0.0 Baso % (Auto) 0.5 Absolute Neuts (auto) 7.3 Absolute Lymphs (auto) 0.95 Nucleated RBC % 0 Sodium 133 L Potassium 3.8 Chloride 99 Carbon Dioxide 28.0 Anion Gap 6 BUN 18 Creatinine 1.16 Estim Creat Clear Calc 69.77 Est GFR (MDRD) Af Amer 83 Est GFR (MDRD) Non-Af 68 BUN/Creatinine Ratio 15.5 Glucose 121 H Calcium 9.7 Total Bilirubin 0.40 AST 20 ALT 26 Alkaline Phosphatase 68 Troponin I High Sens 3 Total Protein 8.4 H Albumin 4.1 Globulin 4.3 H Albumin/Globulin Ratio 1.0 Lipase 24 Urine Color Yellow Urine Clarity Clear Urine pH 6.0 Ur Specific [place] 1.020 Urine Protein 15 H Urine Glucose (UA) Normal Urine Ketones Negative Urine Occult Blood 50 H Urine Nitrite Negative Urine Bilirubin Negative Urine Urobilinogen Normal Ur Leukocyte Esterase Negative Urine RBC 0-5 SEEN Urine WBC 0 SEEN Ur Squamous Epith Cells 0 SEEN Urine Bacteria 0 SEEN Urine Mucus 0 SEEN Radiography Diagnostic Testing: Clinical Impression(s) from Imaging Studies Abdomen/Pelvis CT 07/10/23 15:38 IMPRESSION: Colonic fecal retention. Probable subcentimeter cystic hepatic nodules, similar to previous study. Minimal subcutaneous emphysema of the visualized right upper thigh laterally. Electronically Signed: Regino Carty DO at 19:18 EDT Reading Location ID and State: [facility] / ID Tel [phone], Service support , CT scan of the abdomen pelvis was obtained. There is fecal retention noted. There is some subcutaneous emphysema in the visualized portion of the right upper thigh and perineum. This was interpreted by the radiologist was also independently reviewed by myself. EKG Initial EKG: Attestation: I personally reviewed and interpreted this EKG as follows: Interpretation: Sinus Rhythm (75) and No Acute Injury Pattern Comments: EKG was obtained. On my independent interpretation, it showed a normal sinus rhythm with a rate of 75. MD interval, QRS interval, and QTc intervals were all normal. [place] was normal. There are no acute ST or T wave changes. Prior EKG tracings: available for review Prior: Unchanged (10/04/2022) Treatment and Re-Evaluation :: Patient was given IV fluids, morphine, and Zofran. Patient was advised of his findings. On reevaluation, there was some tenderness over the perineum where there was the subcutaneous emphysema noted on the CT scan. Because of this, I recommended further evaluation and admission to the hospital. Patient was ordered Zosyn. Patient left prior to receiving any of the Zosyn. Patient was advised that this could be serious bacterial infection which could spread and become septic. Patient was advised that this could lead to surgery and loss of skin. Patient was advised that this could eventually lead to . Patient did not want to stay in the hospital. Patient left prior to signing AMA papers. Discharge Plan Triage Chief Complaint: Abd Pain ED Provider: Bob Ames Dx/Rx/DC Orders Clinical Impression: Abdominal pain, Cellulitis of perineum Primary Care Provider: Care Physician,No Primary Referrals: Care Physician,No Primary [Primary Care Provider] - Print Language: Ukrainian Disposition Disposition: Against Medical Advice Discharge Date/Time: 07/10/23 20:32
--- NOTE | 2023-07-10 15:38 | CT_ITS ---
STUDY: CT ABDOMEN AND PELVIS WITH CONTRAST REASON FOR EXAM: Male, 57 years old. Abdominal pain -- IV PO Contrast RADIATION DOSAGE (If Supplied By Facility): CTDIvol = ( 13.08 ) mGy, DLP = ( 858.31 ) mGycm TECHNIQUE: Transaxial images were obtained from the dome of the diaphragm to the symphysis pubis without oral contrast. Oral and amp; IV Gastrografin and amp; 100mL Isovue-370 was administered. Sagittal and coronal images were reconstructed. Individualized dose optimization techniques were used for this CT. COMPARISON: October 04, 2022. FINDINGS: The visualized lung bases are unremarkable. The visualized portions of the heart are within normal limits. Stable hypoattenuated nodules in the liver, likely cystic in nature. Normal gallbladder and extrahepatic biliary system. Normal spleen. Normal pancreas. Normal bilateral adrenal glands. Normal right kidney. Normal left kidney. Normal visualized stomach. Normal small intestine. Fecal retention in the colon. The appendix is visualized and appears normal. Normal abdominal aorta. Normal inferior vena cava. Normal retroperitoneum. Normal urinary bladder. Normal abdominal wall. Minimal subcutaneous emphysema of the visualized right upper thigh laterally. Normal osseous structures. CT/Abdomen/Pelvis WITH Contrast IMPRESSION: Colonic fecal retention. Probable subcentimeter cystic hepatic nodules, similar to previous study. Minimal subcutaneous emphysema of the visualized right upper thigh laterally. Electronically Signed: Regino Carty DO at 19:18 EDT ,
[2023-07-10] MEDS: Ondansetron 4 MG/2 ML Vial IV (15:50)
[2023-07-10] MEDS: Morphine 4 MG/ML Syringe IV ×2 (15:50→16:54)
[2023-07-10] MEDS: 0.9% Normal Saline (1000mL) 1,000 ML 999 ML IV (15:50)
[2023-07-10 15:57] LABS: Absolute Lymphocyte Count 0.95 X10^3/uL (0.83-4.51); Absolute Neutrophil Count 7.3 X10^3/uL (2.0-7.7); Basophil# 0.04 X10^3/uL; Basophil% 0.5 % (0-1); Hematocrit 44.6 % (40-54); Hemoglobin 14.5 g/dL (13.0-16.5); Lymphocyte # 0.95 X10^3/ul (0.83-4.51); Lymphocyte % 10.8 % (19-41); Mean Corp Hgb Conc 32.5 g/dL (32-36); Mean Corpuscular Hgb 28.9 pg (27.0-32.0); Mean Corpuscular Volume 88.8 fL (80-94); Mean Platelet Vol. 10.8 fl (6.2-12.0); Monocyte# 0.54 X10^3/uL; Monocyte% 6.1 % (0-10); NRBC Flagged by Analyzer 0 % (0-5); Neutrophil # 7.26 X10^3/uL (2.7-7.7); Neutrophil % 82.3 % (47-70); Platelet Count 391 K/mm3 (150-450); RBC Distribution Width CV 14.2 % (11.6-14.6); RBC Distribution Width SD 45.9 fl (35.1-43.9); Red Blood Count 5.02 M/mm3 (4.6-6.2); White Blood Count 8.8 K/mm3 (4.4-11.0)
--- NOTE | 2023-07-10 16:00 | ED.RN ---
PTS DAUGHTER SURINDER ASKING FOR UPDATE. RN STATED PATIENT DOES NOT HAVE HER UNDER HIS EMERGENCY CONTACT AT THIS TIME. RN CHECKED WITH PATIENT WHERE HE VERIFIED IT WAS OK TO GIVE HER INFORMATION. SURINDER HAS BEEN UPDATED AND STATES SHE IS ON HER WAY TO ED. NO FURTHER QUESTIONS AT THIS TIME
[2023-07-10 16:42] LABS: AST(SGOT) 20 U/L (15-37); Alanine Aminotransfer ALT/SGPT 26 U/L (16-61); Albumin, Serum 4.1 g/dL (3.2-5.0); Alkaline Phosphatase 68 U/L (45-117); Anion Gap 6 (5-15); BUN 18 mg/dL (7-18); BUN/Creat Ratio 15.5 RATIO (10-20); Calcium,Total 9.7 mg/dL (8.5-10.1); Chloride 99 mmol/L (98-107); Creatinine, Serum 1.16 mg/dL (0.70-1.30); EST Glomerular Filtration Rate 68 mL/min (>60); Est Glom Filt Rate - Afr Amer 83 mL/min (>60); Estimated Creatinine Clearance 69.77 ml/min; Globulin 4.3 g/dL (2.2-4.2); Glucose 121 mg/dL (74-106); Lipase 24 U/L (13-75); Potassium 3.8 mmol/L (3.5-5.1); Protein, Total 8.4 g/dL (6.4-8.2); Sodium Level 133 mmol/L (136-145); Troponin-I HS 3 pg/mL (3.0-78.0)
--- NOTE | 2023-07-10 16:49 | EKG12_ITS ---
Test Reason : Blood Pressure : / mmHG Vent. Rate : 075 BPM Atrial Rate : 075 BPM P-R Int : 150 ms QRS Dur : 082 ms QT Int : 396 ms P-R-T Axes : 079 -09 -01 degrees QTc Int : 442 ms Normal sinus rhythm Normal ECG Confirmed by Jose Manuel Spencer ([id number]), online editor JOSHUA ROBINS ([id number]) on 07/11/2023 11:59:52 AM Referred By: SYDNEY Confirmed By:Jose Manuel Spencer
[2023-07-10] MEDS: Dicyclomine 20 MG/2 ML Vial IM (16:53)
[2023-07-10 17:15] VITALS: BP 133/71; PULSE 72; RESP 16; O2SAT 99
[2023-07-10 17:41] LABS: Bacteria 0 SEEN /hpf (None Seen); Mucous, Urine 0 SEEN /hpf (<or=2+); Squamous Epithelial Cells - UA 0 SEEN /hpf (0-5)
[2023-07-10 17:44] LABS: Color, Urine Yellow (Yellow); Glucose, Dipstick Normal (Normal); Ketone-Dipstick Negative (Negative); Leukocyte Esterase-Dipstick Negative /ul (Negative); Nitrite-Dipstick Negative (Negative); Occult Blood-Urine 50 /ul (Negative); Protein-Dipstick 15 mg/dl (Negative); Urine Bilirubin Dipstick Negative (Negative); Urine Clarity Clear (Clear); Urine Urobilinogen Normal (Normal)
[2023-07-10 17:54] LABS: Red Blood Cells-Urine 0-5 SEEN /hpf (0-5); White Blood Cells 0 SEEN /hpf (0-5)
[2023-07-10 19:00] VITALS: BP 142/80
--- NOTE | 2023-07-10 20:02 | ED.RN ---
PATIENT HAD GOTTEN DRESSED AND GRABBED HIS BELONGINGS. THIS RN STOPPED PATIENT IN THE HALLWAY ASKING IF HE WAS LEAVING. PT SAID YES, I AM NOT STAYING HERE. RN ASKS PATIENT IF HIS IV HAD BEEN REMOVED. PT STATES NO, I STILL HAVE IT. RN STATES WE NEED TO REMOVE THE IV BEFORE YOU LEAVE. LETS GO BACK TO THE ROOM AND WE CAN DO THAT. UPON ENTERING PATIENTS ROOM, PT STATES I AM NOT STAYING. I DON'T CARE. I AM LEAVING. PTS DAUGHTER SURINDER AT BEDSIDE ON THE PHONE WITH PATIENTS . SURINDER AND AGREE PATIENT NEEDS TO STAY TO BE TREATED WITH ABX FOR HIS INFECTION. PT STATES I AM LEAVING. SURINDER STATES WOULD HE BE MOVED TO A MORE COMFORTABLE ROOM. THIS RN STATES YES, HE WOULD BE MOVED TO A MORE COMFORTABLE BED AND ROOM. PT STATES I AM LEAVING. GRABS HIS BELONGINGS AND LEAVES THE DEPARTMENT. RN STATES TO SURINDER, I AM SORRY, UNFORTUNATELY I CANNOT MAKE HIM STAY IF HE DOES NOT WANT TO BE HERE. DOES HE HAVE A RIDE HOME? SURINDER STATES I AM NOT TAKING HIM AND HE DOES NOT LIVE CLOSE. SURINDER IS UNDERSTANDING, GRABS HER BELONGINGS AND LEAVES THE DEPARTMENT. DR. GRIMES NOTIFED.
== END 2023-07-10 20:32 | disposition left against medical advice (07) ==
PROVIDERS: Emergency Provider Emergency Medicine; Visit Provider Emergency Medicine
DX: L03.315 Cellulitis of perineum (principal); R10.9 Unspecified abdominal pain; R11.2 Nausea with vomiting, unspecified; F17.290 Nicotine dependence, other tobacco product, uncomplicated; R07.9 Chest pain, unspecified; M54.9 Dorsalgia, unspecified
CPT/HCPCS: 74177; 80053; 81001; 83690; 84484; 85025; 93005; 96361; 96372; 96374; 96375; 96376; 99283; J7030; Q9967; A4216; J2405

== ENCOUNTER 2023-07-11 20:46 | Emergency (ER) | payer MEDICAID, SELFPAY ==
[2023-07-11 20:47] VITALS: BP 149/96; PULSE 78; RESP 16; TEMP 37.3; O2SAT 97; BMI 29.0
--- NOTE | 2023-07-11 21:10 | EX.ED.DYSGE1 ---
HPI <OTIS Jones - Last Filed: 07/11/23 21:54> History of Present Illness Chief Complaint: Abd Pain Narrative Narrative: Patient is a 57-year-old male with no significant medical history, patient presents to the emergency department with ongoing pain to the right lower quadrant. Patient was seen last night, patient states that he heard news that he did not want to hear, he was ordered IV Zosyn and admission to the hospital. Patient states he got scared and left. Today, the patient had nausea and vomiting, patient states the pain is worse and he is here for evaluation. PFSH <OTIS Jones - Last Filed: 07/11/23 21:54> PFSH Medical History Cancer Home Medications ?Medication ?Instructions ?Recorded ?Last Taken ?Type lansoprazole 30 mg capsule,delayed 30 mg PO QHS 4 weeks #28 caps 07/12/23 Unknown Rx release (Prevacid) promethazine 25 mg rectal 25 mg TX Q4H PRN nausea and 07/12/23 Unknown Rx suppository vomiting #12 ea Allergy/AdvReac Type Severity Reaction Status Date / Time naproxen (From Naprosyn) AdvReac Nausea Verified 07/11/23 20:49 Social History Smoking Status: Current some day smoker tobacco type: e-cigarettes ROS <OTIS Jones - Last Filed: 07/11/23 21:54> ROS ED ROS Narrative Constitutional: Negative for weight loss, weakness. Positive for fever and chills Eyes: Negative for vision loss, vision change, double vision ENT: Negative for any sore throat, ear pain, congestion Cardiovascular: Negative for any chest pain, tightness, palpitations Respiratory: Negative for any cough, sputum production, hemoptysis, dyspnea, dyspnea on exertion, orthopnea Gastrointestinal: Negative for any diarrhea, constipation, blood in stool, blood in vomit. Positive for lower abdominal pain, nausea and vomiting : Negative for any urinary frequency, dysuria, retention, blood in urine Muscle skeletal: Negative for any neck pain, back pain Neurological: Negative for any headache, syncope, dizziness Skin: Negative for any rashes, itching, abrasions, lacerations Psychiatric: Negative for any depression, anxiety, stress, suicidal ideation, homicidal ideation Hematologic: Negative for any excessive bruising, easy bleeding EXAM <OTIS Jones - Last Filed: 07/11/23 21:54> Physical Exam Narrative Exam Narrative: Vital signs reviewed. HEET: Head normocephalic atraumatic, TMs clear bilaterally. Posterior pharynx is clear, moist mucous membranes. Nares clear bilaterally. Neck: Supple with no lymphadenopathy or tenderness. No signs of meningismus. Cardiac: Regular rate and rhythm no murmurs gallops or rubs, equal peripheral pulses bilaterally. Respiratory: Lungs clear to auscultation bilaterally. No chest tenderness. Abdomen: Soft, nondistended. No abdominal bruit or pulsatile masses. No hepatosplenomegaly. Tenderness to the right lower quadrant, no peritoneal signs. No crepitus felt Extremities: No peripheral edema, no signs of gross trauma or deformity. Active full range of motion of all extremities. Neuro: Cranial nerves II through XII intact, no focal neurological deficits. Skin: Clean dry and intact with no rash, purpura, petechiae, vesicles or pustules. Backs/flank: No CVA tenderness, no midline spinal tenderness, no deformity. Psych: Normal mood and affect. No SI, HI or acute psychosis. Const Vital Signs: 07/11/23 20:47 07/11/23 21:49 07/11/23 22:52 Temperature 99.2 F H 99.1 F 98.6 F Temperature Source Oral Oral Oral Pulse Rate 78 88 70 Respiratory Rate 16 18 16 Blood Pressure 149/96 H 144/74 H 155/85 H Blood Pressure Mean 113 97 108 Pulse Ox 97 98 100 Oxygen Delivery Method Room Air Room Air Room Air 07/11/23 22:53 Temperature 98.6 F Temperature Source Oral Pulse Rate 77 Respiratory Rate 16 Blood Pressure 155/85 H Blood Pressure Mean 108 Pulse Ox 100 Oxygen Delivery Method Room Air Positive well nourished and well developed General Appearance ED: well developed <Dr. Rosalva Alberto DO - Last Filed: 07/12/23 00:13> Physical Exam Const Vital Signs: 07/11/23 20:47 07/11/23 21:49 07/11/23 22:52 Temperature 99.2 F H 99.1 F 98.6 F Temperature Source Oral Oral Oral Pulse Rate 78 88 70 Respiratory Rate 16 18 16 Blood Pressure 149/96 H 144/74 H 155/85 H Blood Pressure Mean 113 97 108 Pulse Ox 97 98 100 Oxygen Delivery Method Room Air Room Air Room Air 07/11/23 22:53 Temperature 98.6 F Temperature Source Oral Pulse Rate 77 Respiratory Rate 16 Blood Pressure 155/85 H Blood Pressure Mean 108 Pulse Ox 100 Oxygen Delivery Method Room Air [facility] <OTIS Jones - Last Filed: 07/11/23 21:54> [facility] Lab Data Labs: Laboratory Results - last 24 hr 07/11/23 21:23 WBC 8.7 RBC 4.93 Hgb 14.3 Hct 43.2 MCV 87.6 MCH 29.0 MCHC 33.1 RDW Std Deviation 45.1 H RDW Coeff of Meagan 13.9 Plt Count 374 MPV 10.5 Immature Gran % (Auto) 0.200 Neut % (Auto) 76.2 H Lymph % (Auto) 15.8 L [place] % (Auto) 7.3 Eos % (Auto) 0.0 Baso % (Auto) 0.5 Absolute Neuts (auto) 6.6 Absolute Lymphs (auto) 1.37 Nucleated RBC % 0 Sodium 134 L Potassium 3.4 L Chloride 99 Carbon Dioxide 26.0 Anion Gap 9 BUN 15 Creatinine 1.10 Estim Creat Clear Calc 74.89 Est GFR (MDRD) Af Amer 88 Est GFR (MDRD) Non-Af 73 BUN/Creatinine Ratio 13.6 Glucose 105 Lactic Acid 1.3 Calcium 9.0 Total Bilirubin 0.60 AST 20 ALT 24 Alkaline Phosphatase 59 Total Protein 8.1 Albumin 4.0 Globulin 4.1 Albumin/Globulin Ratio 1.0 Lipase 23 Radiography Diagnostic Testing: Clinical Impression(s) from Imaging Studies Abdomen/Pelvis CT 07/11/23 21:25 IMPRESSION: Normal enhanced CT of the abdomen and pelvis. Electronically Signed: Leroy Patel MD at 23:58 EDT , Gallbladder Ultrasound 07/11/23 22:57 IMPRESSION: Cholesterolosis. Electronically Signed: Leroy Patel MD at 23:54 EDT , Treatment and Re-Evaluation :: Differential diagnosis includes however is not limited to: Pneumoperitoneum, appendicitis, gastritis, diverticulitis, bowel perforation Patient arrives to the [facility] with complaints of right lower quad abdominal pain. Vital signs are stable, patient does look uncomfortable however he is in no distress. Patient was seen here last night and left AGAINST MEDICAL ADVICE. There were concern for possible infection. Patient CT scan showed a minimal subcutaneous emphysema of the visualized right upper thigh laterally. Secondary to this finding, patient having right lower quadrant, the patient was placed on Zosyn. Patient left before any intervention could be done. Patient is back today with worsening right lower quadrant abdominal pain. Patient will receive a full abdominal workup. Patient's laboratory values showed a normal CBC which is similar to yesterday. Chemistries were also similar to yesterday. No acute abnormalities. Patient will receive a CT scan of the abdomen pelvis. Patient was given IV fluids, IV Zofran. <Dr. Rosalva Alberto, DO - Last Filed: 07/12/23 00:13> [facility] Narrative Medical decision making narrative: I have personally performed a face to face assessment of the patient and have reviewed the YENI Note. I performed a substantive portion of the visit including all aspects of the following. My baldwin findings include: History is [patient presents with abdominal pain that has had for 3 days. Was seen in the emergency department yesterday for same and had a workup and was recommended that he be admitted due to some possible free air in the lateral aspect of the right thigh and concern for possible infection. No other significant CT findings and he had essentially unremarkable labs. Patient presents now with continued abdominal pain and vomiting. Has been having normal stools. Denies blood in the stool or black tarry stool. Denies urinary symptoms.] Exam is [HEENT-PERRLA, EOMI. Cranial nerves II through XII grossly intact. TMs clear. Mucous membranes moist. No adenopathy. Cardiovascular-regular rate and rhythm without murmur or ectopy Lungs-clear to auscultation, chest wall stable without crepitus or subcu emphysema Abdomen-normoactive bowel sounds, soft. Patient has diffuse tenderness over right upper quadrant and right lower quadrant with guarding. There is no rebound, rigidity, or pineal signs. No mass palpated. There is no erythema noted to the abdominal wall. No cellulitic changes. On exam testicles are nontender and no erythema or masses or fluctuance noted in the perineum or the thigh. He has no tenderness to any of these areas. Extremities-intact ?4, normal range of motion, normal pulses, atraumatic] Medical Decison Making [patient with continued abdominal pain and vomiting. IV line established. He was medicated with Zofran. I ordered Protonix. CBC with differential showed a normal white count of 8.7 with hemoglobin 14 and platelet count of 374. Chemistries unremarkable. LFTs were normal. Lactate normal at 1.3 and lipase normal at 23. I did do a repeat CT scan of the abdomen pelvis with IV and p.o. contrast and this was essentially normal. I also got an ultrasound of the gallbladder which showed cholesterolosis otherwise no acute findings for cholecystitis. This point clinically looks well I will discharge him to home. Will write for Phenergan suppositories and Prevacid. Will refer to GI for follow-up. Etiology of his pain unclear but I suspect possibility of a gastro enteritis.] Other additions or changes: [None] Lab Data Attestation: I reviewed the patient's lab results. Labs: Laboratory Results - last 24 hr 07/11/23 21:23 WBC 8.7 RBC 4.93 Hgb 14.3 Hct 43.2 MCV 87.6 MCH 29.0 MCHC 33.1 RDW Std Deviation 45.1 H RDW Coeff of Meagan 13.9 Plt Count 374 MPV 10.5 Immature Gran % (Auto) 0.200 Neut % (Auto) 76.2 H Lymph % (Auto) 15.8 L [place] % (Auto) 7.3 Eos % (Auto) 0.0 Baso % (Auto) 0.5 Absolute Neuts (auto) 6.6 Absolute Lymphs (auto) 1.37 Nucleated RBC % 0 Sodium 134 L Potassium 3.4 L Chloride 99 Carbon Dioxide 26.0 Anion Gap 9 BUN 15 Creatinine 1.10 Estim Creat Clear Calc 74.89 Est GFR (MDRD) Af Amer 88 Est GFR (MDRD) Non-Af 73 BUN/Creatinine Ratio 13.6 Glucose 105 Lactic Acid 1.3 Calcium 9.0 Total Bilirubin 0.60 AST 20 ALT 24 Alkaline Phosphatase 59 Total Protein 8.1 Albumin 4.0 Globulin 4.1 Albumin/Globulin Ratio 1.0 Lipase 23 Radiography Diagnostic Testing: Clinical Impression(s) from Imaging Studies Abdomen/Pelvis CT 07/11/23 21:25 IMPRESSION: Normal enhanced CT of the abdomen and pelvis. Electronically Signed: Leroy Patel MD at 23:58 EDT Reading Location ID and State: [id number] / [place] Tel , Service support , Gallbladder Ultrasound 07/11/23 22:57 IMPRESSION: Cholesterolosis. Electronically Signed: Leroy Patel MD at 23:54 EDT , Discharge Plan Triage Chief Complaint: Abd Pain ED Midlevel Provider: Carlos Meyers ED Provider: Rosalva Alberto Dx/Rx/DC Orders Clinical Impression: Abdominal pain, Vomiting Instructions: ED Abdominal Pain Unkn Cause Male... Prescriptions: New promethazine 25 mg suppository 25 mg TX Q4H PRN (Reason: nausea and vomiting) Qty: 12 0RF lansoprazole [Prevacid] 30 mg capsule,delayed release(DR/EC) 30 mg PO QHS 28 Days Qty: 28 0RF Primary Care Provider: Care Physician,No Primary Referrals: Friend,DO Abdiaziz [Med Staff - Active Staff] - 3-5 Days Care Physician,No Primary [Primary Care Provider] - Print Language: Citizen Of [place] Disposition Disposition: Home, Self Care
[2023-07-11] MEDS: 0.9% Normal Saline (1000mL) 1,000 ML 15 ML IV (21:19)
[2023-07-11] MEDS: Ondansetron 4 MG/2 ML Vial IV (21:19)
--- NOTE | 2023-07-11 21:25 | CT_ITS ---
STUDY: CT ABDOMEN AND PELVIS WITH CONTRAST REASON FOR EXAM: Male, 57 years old. abdominal pain RADIATION DOSAGE (If Supplied By Facility): CTDIvol = ( 13.28 ) mGy, DLP = ( 759.53 ) mGycm TECHNIQUE: Transaxial images were obtained from the dome of the diaphragm to the symphysis pubis without oral contrast. Oral and amp; IV Gastrografin and amp; 100mL Isovue-370 was administered. Sagittal and coronal images were reconstructed. Individualized dose optimization techniques were used for this CT. COMPARISON: 07/10/2023 FINDINGS: The visualized lung bases are unremarkable. The visualized portions of the heart are within normal limits. Tiny hepatic cysts. Normal gallbladder and extrahepatic biliary system. Normal spleen. Normal pancreas. Normal bilateral adrenal glands. Normal right kidney. Normal left kidney. Normal visualized stomach. Normal small intestine. Normal colon. The appendix is visualized and appears normal. Normal abdominal aorta. Normal inferior vena cava. Normal retroperitoneum. Normal urinary bladder. Normal abdominal wall. Normal osseous structures. CT/Abdomen/Pelvis WITH Contrast IMPRESSION: Normal enhanced CT of the abdomen and pelvis. Electronically Signed: Leroy Patel MD at 23:58 EDT ,
[2023-07-11 21:30] LABS: Absolute Lymphocyte Count 1.37 X10^3/uL (0.83-4.51); Absolute Neutrophil Count 6.6 X10^3/uL (2.0-7.7); Basophil# 0.04 X10^3/uL; Basophil% 0.5 % (0-1); Hematocrit 43.2 % (40-54); Hemoglobin 14.3 g/dL (13.0-16.5); Lymphocyte # 1.37 X10^3/ul (0.83-4.51); Lymphocyte % 15.8 % (19-41); Mean Corp Hgb Conc 33.1 g/dL (32-36); Mean Corpuscular Volume 87.6 fL (80-94); Mean Platelet Vol. 10.5 fl (6.2-12.0); Monocyte# 0.63 X10^3/uL; Monocyte% 7.3 % (0-10); NRBC Flagged by Analyzer 0 % (0-5); Neutrophil % 76.2 % (47-70); Platelet Count 374 K/mm3 (150-450); RBC Distribution Width CV 13.9 % (11.6-14.6); RBC Distribution Width SD 45.1 fl (35.1-43.9); Red Blood Count 4.93 M/mm3 (4.6-6.2); White Blood Count 8.7 K/mm3 (4.4-11.0)
[2023-07-11 21:49] VITALS: BP 144/74; PULSE 88; RESP 18; TEMP 37.3; O2SAT 98
[2023-07-11 21:51] LABS: AST(SGOT) 20 U/L (15-37); Alanine Aminotransfer ALT/SGPT 24 U/L (16-61); Alkaline Phosphatase 59 U/L (45-117); Anion Gap 9 (5-15); BUN 15 mg/dL (7-18); BUN/Creat Ratio 13.6 RATIO (10-20); Chloride 99 mmol/L (98-107); EST Glomerular Filtration Rate 73 mL/min (>60); Est Glom Filt Rate - Afr Amer 88 mL/min (>60); Estimated Creatinine Clearance 74.89 ml/min; Globulin 4.1 g/dL (2.2-4.2); Glucose 105 mg/dL (74-106); Lipase 23 U/L (13-75); Potassium 3.4 mmol/L (3.5-5.1); Protein, Total 8.1 g/dL (6.4-8.2); Sodium Level 134 mmol/L (136-145)
[2023-07-11 22:03] LABS: Lactic Acid 1.3 mmol/L (0.4-1.9)
[2023-07-11 22:52] VITALS: BP 155/85; PULSE 70; RESP 16; TEMP 37; O2SAT 100
[2023-07-11 22:53] VITALS: BP 155/85; PULSE 77; RESP 16; TEMP 37; O2SAT 100
--- NOTE | 2023-07-11 22:57 | US_ITS ---
STUDY: ABDOMINAL ULTRASOUND - RIGHT UPPER QUADRANT REASON FOR VISIT: Male, 57 years old abdominal pain TECHNIQUE: Ultrasound evaluation of the right upper quadrant was performed with real-time and static demarco-scale imaging. TECHNICAL QUALITY: Adequate. COMPARISON: None. FINDINGS: Liver: The liver measures 13.8 cm. There is normal echogenicity of the liver. The bile ducts are within normal limits. There is hepatic color flow. The direction of portal flow is hepatopetal. 1 cm cyst in the subcapsular left lobe of the liver. Gallbladder: Normal distended gallbladder. The gallbladder wall measures 2 mm. There is a negative sonographic Franklin''s sign. There is no pericholecystic fluid. There are gallbladder polyps. Common Bile Duct (C.B.D.): The common bile duct measures 4 mm. Pancreas: Normal size of the head, body and tail of the pancreas. There is normal echogenicity of the pancreas. There is no demonstrated pancreatic mass or cyst. Right Kidney: Normal size of the right kidney. The right kidney measures 10.8 cm. Normal renal cortex. The right cortex measures 2.0 cm. There is no demonstrated renal mass or cyst. There is no right hydronephrosis. US/Gallbladder IMPRESSION: Cholesterolosis. Electronically Signed: Leroy Patel MD at 23:54 EDT ,
[2023-07-12] VITALS: BP 148/85; PULSE 70; RESP 16; TEMP 37.2; O2SAT 98
[2023-07-12] MEDS: Pantoprazole Sodium 40 MG in 0.9% Normal Saline (100mL MB+) 100 ML 330 MG IV (00:25)
[2023-07-12 00:43] VITALS: BP 148/85; PULSE 70; RESP 16; TEMP 37.2; O2SAT 98
== END 2023-07-12 00:46 | disposition home or self-care (01) ==
PROVIDERS: Nurse Practitioner; Emergency Provider Emergency Medicine; Visit Provider Emergency Medicine
DX: R10.31 Right lower quadrant pain (principal); R11.10 Vomiting, unspecified; F17.290 Nicotine dependence, other tobacco product, uncomplicated; K82.4 Cholesterolosis of gallbladder; R10.811 Right upper quadrant abdominal tenderness
CPT/HCPCS: 74177; 76705; 80053; 83605; 83690; 85025; 96365; 96375; 99284; J7030; Q9967; J2405

== ENCOUNTER 2023-12-22 15:25 | Emergency (ER) | payer MEDICAID, SELFPAY ==
[2023-12-22 15:25] VITALS: BP 128/83; PULSE 92; RESP 18; TEMP 36.8; O2SAT 99; BMI 27.8
--- NOTE | 2023-12-22 15:44 | EKG12_ITS ---
Test Reason : cp Blood Pressure : */* mmHG Vent. Rate : 76 BPM Atrial Rate : 76 BPM P-R Int : 152 ms QRS Dur : 90 ms QT Int : 382 ms P-R-T Axes : 73 -15 21 degrees QTcB Int : 429 ms Normal sinus rhythm Minimal voltage criteria for LVH, may be normal variant ( R in aVL ) nstwave changes Abnormal ECG Confirmed by Jose Manuel Spencer ([id number]), editorial director JOSHUA ROBINS ([id number]) on 12/23/2023 9:24:42 AM Referred By: Confirmed By: Jose Manuel Spencer
--- NOTE | 2023-12-22 15:45 | RAD_ITS ---
STUDY: X-RAY CHEST REASON FOR EXAM: Male, 58 years old. chest pain TECHNIQUE: Frontal and lateral views of the chest. COMPARISON: None. FINDINGS: The lungs are clear and expanded. There is no demonstrated pleural abnormality. Normal size heart. Normal mediastinum and candace. Normal visualized pulmonary arteries. Normal visualized aortic arch and descending thoracic aorta. Normal visualized thoracic spine. Normal visualized ribs, clavicles, and shoulders. There is no demonstrated abnormality of the visualized soft tissue structures of the upper abdomen. RAD/Chest PA and Lateral IMPRESSION: Normal x-ray examination of the chest. Electronically Signed: Fredis Vuong MD at 16:27 EST ,
--- NOTE | 2023-12-22 15:46 | ED.VIS.CHEST ---
HPI <TIAN Richardson - Last Filed: 12/22/23 16:29> History of Present Illness Chief Complaint: Chest Pain Narrative Narrative: 58-year-old male with no significant past medical history who does not see a doctor presents with chest pain. Last night around 7 PM he started to develop intermittent sharp pain in the midsternal area. He states it comes out of nowhere and it can occur even while he sleeping. It is not exertional or pleuritic. He has no shortness of breath or dyspnea on exertion or orthopnea. No fever or cough. No nausea vomiting or diaphoresis. No radiation to the jaw or arms. He takes no medications. He states he used to be on some type of gastric medication but is no longer taking it. He vapes occasionally. He states he had some type of cardiac event in the past and was told he should be transferred to another hospital for evaluation but did not go. He has no history of DVT/PE or risk factors. PFSH <TIAN Richardson - Last Filed: 12/22/23 16:29> PFS Medical History Cancer Home Medications ?Medication ?Instructions ?Recorded ?Last Taken ?Type lansoprazole 30 mg capsule,delayed 30 mg PO QHS 4 weeks #28 caps 07/12/23 Unknown Rx release (Prevacid) promethazine 25 mg rectal 25 mg MA Q4H PRN nausea and 07/12/23 Unknown Rx suppository vomiting #12 ea lansoprazole 30 mg capsule,delayed 30 mg PO DAILY 30 days #30 caps 12/22/23 Unknown Rx release (Prevacid) Allergy/AdvReac Type Severity Reaction Status Date / Time naproxen (From Naprosyn) AdvReac Nausea Verified 12/22/23 15:26 Social History Smoking Status: Current some day smoker tobacco type: e-cigarettes ROS <TIAN Richardson - Last Filed: 12/22/23 16:29> ROS ED ROS Narrative Constitutional: Negative for fever, chills, malaise. CVS: Positive for chest pain. Negative for palpitations, syncope. Respiratory: Negative for shortness of breath, cough, orthopnea. GI: Negative for abdominal pain, nausea, vomiting, diarrhea, constipation, melena, hematochezia. EXAM <TIAN Richardson - Last Filed: 12/22/23 16:29> Physical Exam Narrative Exam Narrative: CONST: Patient sitting in no acute distress. EYES: Normal inspection. ENT: Normal inspection, moist mucous membranes. NECK: Normal inspection. RESP: No respiratory distress, CTAB. Chest wall nontender. CVS: Regular rate and rhythm, no murmur, no gallop. ABD: Soft with tenderness in left upper quadrant, no guarding or rebound, nondistended, no hepatosplenomegaly. Back: Normal inspection. SKIN: Color normal, no rash, warm, dry, intact. EXTREMITIES: Normal appearance, no pedal edema. NEURO: Alert and answering questions appropriately. PSYCH: Normal affect. Const Vital Signs: 12/22/23 15:25 12/22/23 15:40 12/22/23 16:25 Temperature 98.2 F Temperature Source Oral Pulse Rate 92 76 Respiratory Rate 18 17 Respiratory Effort Normal Non-Labored Respiratory Pattern Normal Blood Pressure 128/83 H 127/91 H Blood Pressure Mean 98 103 Pulse Ox 99 97 Oxygen Delivery Method Room Air Room Air 12/22/23 16:26 Temperature 98.0 F Temperature Source Pulse Rate 76 Respiratory Rate 17 Respiratory Effort Respiratory Pattern Blood Pressure 127/91 H Blood Pressure Mean 103 Pulse Ox 97 Oxygen Delivery Method <Dr. Franklin Beaver MD - Last Filed: 12/22/23 17:08> Physical Exam Const Vital Signs: 12/22/23 15:25 12/22/23 15:40 12/22/23 16:25 Temperature 98.2 F Temperature Source Oral Pulse Rate 92 76 Respiratory Rate 18 17 Respiratory Effort Normal Non-Labored Respiratory Pattern Normal Blood Pressure 128/83 H 127/91 H Blood Pressure Mean 98 103 Pulse Ox 99 97 Oxygen Delivery Method Room Air Room Air 12/22/23 16:26 Temperature 98.0 F Temperature Source Pulse Rate 76 Respiratory Rate 17 Respiratory Effort Respiratory Pattern Blood Pressure 127/91 H Blood Pressure Mean 103 Pulse Ox 97 Oxygen Delivery Method MDM <TIAN Richardson - Last Filed: 12/22/23 16:29> [facility] MDM Narrative Medical decision making narrative: History gathered from: Patient and spouse EKG nonischemic and troponin is 4. With about 24 hours of chest pain this rules out ACS. CBC, CMP, lipase unremarkable. With patient's atypical description of chest pain and tenderness in left upper quadrant as well as history of GERD no longer taking a PPI I suspect this is more gastric/GERD related. He was treated with IV Pepcid here and prescribed Prevacid 30 mg which he was on previously. I discussed return precautions and provided a primary care referral. He was discharged in stable condition. I have personally performed a face to face assessment of the patient and have reviewed the YENI Note. I performed a substantive portion of the visit including all aspects of the following. My baldwin findings include: History is remarkable the fact the patient does not have a doctor has not seen a doctor in some time. He presents with pain right side the chest that started last evening at 1900. Is been constant. Nothing truly makes it better or worse. He vapes. He states he does consume alcohol. There is no history of pancreatitis. He denies black or maroon-colored stool. He is on a PPI. He denies history of VTE. Denies leg pain, swelling discoloration. Exam is remarkable for depressed affect. HEENT is unremarkable. There is some temporal wasting noted. Patient has normal-appearing chest. No crepitus subcutaneous air. Breath sounds are symmetric and equal. There is no rales, wheezing or rhonchi noted. Heart is regular with a normal rate. There is no murmur, gallop or rub. Abdomen is remarkable for significant tenderness in the left upper quadrant. There is no hepatosplenomegaly. Medical Decision Making suspect patient's chest pain is noncardiac. This may be GI i.e. esophageal spasm, esophagitis, peptic ulcer disease, pancreatitis. Will obtain EKG and appropriate blood work. Other additions or changes: [None] Lab Data Labs: Laboratory Results - last 24 hr 12/22/23 15:40 WBC 7.8 RBC 4.94 Hgb 14.4 Hct 44.2 MCV 89.5 MCH 29.1 MCHC 32.6 RDW Std Deviation 44.5 H RDW Coeff of Meagan 13.6 Plt Count 348 MPV 10.7 Immature Gran % (Auto) 0.300 Neut % (Auto) 75.7 H Lymph % (Auto) 15.1 L [place] % (Auto) 7.5 Eos % (Auto) 0.6 Baso % (Auto) 0.8 Absolute Neuts (auto) 5.9 Absolute Lymphs (auto) 1.18 Nucleated RBC % 0 Differential Comment SCANNED Sodium 136 Potassium 3.6 Chloride 104 Carbon Dioxide 27.0 Anion Gap 6 BUN 11 Creatinine 1.22 Estim Creat Clear Calc 65.48 Est GFR (MDRD) Af Amer 78 Est GFR (MDRD) Non-Af 64 BUN/Creatinine Ratio 9.0 L Glucose 124 H Calcium 8.6 Total Bilirubin 0.40 AST 21 ALT 25 Alkaline Phosphatase 56 Troponin I High Sens 4 Total Protein 7.3 Albumin 3.7 Globulin 3.6 Albumin/Globulin Ratio 1.0 Lipase 32 Radiography Diagnostic Testing: Clinical Impression(s) from Imaging Studies Chest X-Ray 12/22/23 15:45 IMPRESSION: Normal x-ray examination of the chest. Electronically Signed: Fredis Vuong MD at 16:27 EST , ED attending interpretation of 1-view chest x-ray shows normal heart size, no acute infiltrate, edema, or effusion. EKG Initial EKG: Attestation: I personally reviewed and interpreted this EKG as follows: Interpretation: Sinus Rhythm and No Acute Injury Pattern Comments: Normal sinus rhythm at 76 bpm Normal intervals, no acute ischemic changes <Dr. Franklin Beaver MD - Last Filed: 12/22/23 17:08> [facility] Narrative Medical decision making narrative: I have personally performed a face to face assessment of the patient and have reviewed the YENI Note. I performed a substantive portion of the visit including all aspects of the following. My baldwin findings include: History is remarkable the fact the patient does not have a doctor has not seen a doctor in some time. He presents with pain right side the chest that started last evening at 1900. Is been constant. Nothing truly makes it better or worse. He vapes. He states he does consume alcohol. There is no history of pancreatitis. He denies black or maroon-colored stool. He is on a PPI. He denies history of VTE. Denies leg pain, swelling discoloration. Exam is remarkable for depressed affect. HEENT is unremarkable. There is some temporal wasting noted. Patient has normal-appearing chest. No crepitus subcutaneous air. Breath sounds are symmetric and equal. There is no rales, wheezing or rhonchi noted. Heart is regular with a normal rate. There is no murmur, gallop or rub. Abdomen is remarkable for significant tenderness in the left upper quadrant. There is no hepatosplenomegaly. Medical Decision Making suspect patient's chest pain is noncardiac. This may be GI i.e. esophageal spasm, esophagitis, peptic ulcer disease, pancreatitis. Will obtain EKG and appropriate blood work. Other additions or changes: [None] Lab Data Attestation: I reviewed the patient's lab results. Lab results narrative: CBC is unremarkable. There is a slight shift with 75.7% neutrophils. Basic metabolic panel reveals slight elevation in glucose and normal CO2 anion gap. Lipase is normal. Troponin is 4. With greater than 12 hours of pain and troponin of 4 rules out cardiac etiology. Labs: Laboratory Results - last 24 hr 12/22/23 15:40 WBC 7.8 RBC 4.94 Hgb 14.4 Hct 44.2 MCV 89.5 MCH 29.1 MCHC 32.6 RDW Std Deviation 44.5 H RDW Coeff of Meagan 13.6 Plt Count 348 MPV 10.7 Immature Gran % (Auto) 0.300 Neut % (Auto) 75.7 H Lymph % (Auto) 15.1 L [place] % (Auto) 7.5 Eos % (Auto) 0.6 Baso % (Auto) 0.8 Absolute Neuts (auto) 5.9 Absolute Lymphs (auto) 1.18 Nucleated RBC % 0 Differential Comment SCANNED Sodium 136 Potassium 3.6 Chloride 104 Carbon Dioxide 27.0 Anion Gap 6 BUN 11 Creatinine 1.22 Estim Creat Clear Calc 65.48 Est GFR (MDRD) Af Amer 78 Est GFR (MDRD) Non-Af 64 BUN/Creatinine Ratio 9.0 L Glucose 124 H Calcium 8.6 Total Bilirubin 0.40 AST 21 ALT 25 Alkaline Phosphatase 56 Troponin I High Sens 4 Total Protein 7.3 Albumin 3.7 Globulin 3.6 Albumin/Globulin Ratio 1.0 Lipase 32 Radiography Chest X-Ray - ED: 2 View and Read by ED Physician (Normal cardiac silhouette size. Lung parenchyma is normal. There is no infiltrate, effusion or pneumothorax. Hilum is normal. Osseous structures unremarkable per my independent read at 1612.) Diagnostic Testing: Clinical Impression(s) from Imaging Studies Chest X-Ray 11/03/24 15:45 IMPRESSION: Normal x-ray examination of the chest. Electronically Signed: Fredis Vuong MD at 16:27 EST , Discharge Plan Triage Chief Complaint: Chest Pain ED Midlevel Provider: Mya Clark ED Provider: Franklin Beaver Dx/Rx/DC Orders Clinical Impression: Atypical chest pain, History of gastroesophageal reflux (GERD), Acute LUQ pain, Elevated blood pressure reading without diagnosis of hypertension Instructions: ED Chest Pain, Noncardiac Prescriptions: New lansoprazole [Prevacid] 30 mg capsule,delayed release(DR/EC) 30 mg PO DAILY 30 Days Qty: 30 0RF No Action promethazine 25 mg suppository 25 mg MA Q4H PRN (Reason: nausea and vomiting) Qty: 12 0RF lansoprazole [Prevacid] 30 mg capsule,delayed release(DR/EC) 30 mg PO QHS 28 Days Qty: 28 0RF Primary Care Provider: Care Physician,No Primary Referrals: Haley Newsome MD [Med Staff - Fingerprint Clerk] - Care Physician,No Primary [Primary Care Provider] - Activity Restrictions/Additional Instructions: Your pain may be related to gastroesophageal reflux so I prescribed medication to treat this. I recommend you stop vaping and drinking alcohol as this worsens gastric problems. Please follow-up with a primary care doctor. Print Language: Bermudian Disposition Disposition: Home, Self Care Discharge Date/Time: 12/22/23 16:31
[2023-12-22 15:56] LABS: Absolute Lymphocyte Count 1.18 X10^3/uL (0.83-4.51); Absolute Neutrophil Count 5.9 X10^3/uL (2.0-7.7); Basophil# 0.06 X10^3/uL; Basophil% 0.8 % (0-1); Eosinophil# 0.05 X10^3/uL; Eosinophils% 0.6 % (0-5); Hematocrit 44.2 % (40-54); Hemoglobin 14.4 g/dL (13.0-16.5); Lymphocyte # 1.18 X10^3/ul (0.83-4.51); Lymphocyte % 15.1 % (19-41); Mean Corp Hgb Conc 32.6 g/dL (32-36); Mean Corpuscular Hgb 29.1 pg (27.0-32.0); Mean Corpuscular Volume 89.5 fL (80-94); Mean Platelet Vol. 10.7 fl (6.2-12.0); Monocyte# 0.59 X10^3/uL; Monocyte% 7.5 % (0-10); NRBC Flagged by Analyzer 0 % (0-5); Neutrophil # 5.94 X10^3/uL (2.7-7.7); Neutrophil % 75.7 % (47-70); POSITIVE MORPHOLOGY YES; Platelet Count 348 K/mm3 (150-450); RBC Distribution Width CV 13.6 % (11.6-14.6); RBC Distribution Width SD 44.5 fl (35.1-43.9); Red Blood Count 4.94 M/mm3 (4.6-6.2); White Blood Count 7.8 K/mm3 (4.4-11.0)
[2023-12-22 16:01] LABS: Differential Indicated SCAN CRITERIA MET
[2023-12-22 16:11] LABS: AST(SGOT) 21 U/L (15-37); Alanine Aminotransfer ALT/SGPT 25 U/L (16-61); Albumin, Serum 3.7 g/dL (3.2-5.0); Alkaline Phosphatase 56 U/L (45-117); Anion Gap 6 (5-15); BUN 11 mg/dL (7-18); Calcium,Total 8.6 mg/dL (8.5-10.1); Chloride 104 mmol/L (98-107); Creatinine, Serum 1.22 mg/dL (0.70-1.30); EST Glomerular Filtration Rate 64 mL/min (>60); Est Glom Filt Rate - Afr Amer 78 mL/min (>60); Estimated Creatinine Clearance 65.48 ml/min; Globulin 3.6 g/dL (2.2-4.2); Glucose 124 mg/dL (74-106); Lipase 32 U/L (13-75); Potassium 3.6 mmol/L (3.5-5.1); Protein, Total 7.3 g/dL (6.4-8.2); Sodium Level 136 mmol/L (136-145); Troponin-I HS 4 pg/mL (3.0-78.0)
[2023-12-22] MEDS: Famotidine 200 MG/20 ML MDV 20 MG in 0.9% Normal Saline (Pres. free 8 ML 300 MG IV (16:16)
[2023-12-22 16:25] VITALS: BP 127/91; PULSE 76; RESP 17; O2SAT 97
[2023-12-22 16:26] VITALS: BP 127/91; PULSE 76; RESP 17; TEMP 36.7; O2SAT 97
[2023-12-22 16:37] LABS: Differential Comment SCANNED
== END 2023-12-22 16:31 | disposition home or self-care (01) ==
PROVIDERS: Physician Assistant; Emergency Provider Emergency Medicine; Visit Provider Emergency Medicine
DX: R07.89 Other chest pain (principal); K21.9 Gastro-esophageal reflux disease without esophagitis; Z79.899 Other long term (current) drug therapy; F17.290 Nicotine dependence, other tobacco product, uncomplicated; R10.32 Left lower quadrant pain; R03.0 Elevated blood-pressure reading, without diagnosis of hypertension
CPT/HCPCS: 71046; 80053; 83690; 84484; 85025; 93005; 96374; 99284; A4216; J3490